=== PATIENT | female | born 1965 | race Caucasian/White ===

== ENCOUNTER 2021-01-31 09:40 | Emergency (ER) | payer BC, SELFPAY ==
[2021-01-31 09:41] VITALS: BP 135/79; PULSE 78; RESP 16; TEMP 36.6; O2SAT 99; BMI 27.4
--- NOTE | 2021-01-31 10:02 | HMH.EDUTC ---
[facility] [place] Clinical Impression: Acute bronchitis Qualifiers: Bronchitis organism: unspecified organism Qualified Code(s): J20.9 - Acute bronchitis, unspecified Sinusitis Qualifiers: Sinusitis location: unspecified location Chronicity: acute Recurrence: non-recurrent Qualified Code(s): J01.90 - Acute sinusitis, unspecified Disposition: Home, Self-Care Condition on Discharge: Good Instructions: DI for Sinusitis, DI for Acute Bronchitis Additional Instructions: Drink plenty of fluids. Take tylenol or ibuprofen for pain or fever. Take the medications as directed. Follow up with your regular doctor. GO TO THE ER FOR ANY WORSENING SYMPTOMS The cough medication (promethazine dm) will make you drowsy, so don't drive or operate heavy machinery after taking it. Prescriptions: Promethazine/Dextromethorphan [Promethazine-Dm Syrup] 5 ml PO Q6HP PRN #240 syrup PRN Reason: Cough Transmission Status: Received by [facility] Amoxicillin/Potassium Clav [Augmentin 875-125 Tablet] 1 tab PO Q12H 10 Days #20 tab Transmission Status: Received by [facility] predniSONE [Prednisone 20mg Tab] 20 mg PO BID 4 Days #8 tab Transmission Status: Received by [facility] Referrals: Aryan Padilla MD [Primary Care Provider] - Forms: Work/School Release Time of Disposition: 10:06 Medical Decision Making - Medical Records Medical records reviewed: No: I reviewed the patient's medical records. - Abraham Inquiry Pt receiving controlled substance: No Vital Signs: 01/31/21 09:41 01/31/21 10:04 Temperature 97.8 F 98.1 F Temperature Source Oral Oral Pulse Rate 74 Pulse Rate [Right] 78 Respiratory Rate 16 14 Blood Pressure 129/75 Blood Pressure [Right Arm] 135/79 Blood Pressure Mean [Right Arm] 97 Blood Pressure Source [Right Arm] Automatic Cuff Blood Pressure Position [Right Arm] Sitting 02 Sat by Pulse Oximetry 99 Oxygen Delivery Method Room Air [facility] [place] HPI - General Stated complaint: congestion, cough Time Seen by Provider: 01/31/21 10:02 Mode of Arrival: Ambulatory Source of Information: Patient Limitations: No Limitations Description of Symptoms (Recalled from Triage Doc. by RN): pt started out with nasal congestion that has moved to chest congestion. she is having a productive cough with yellow sputum. pt states she gets bronchitis about this time every year. pt has had both covid vaccines. HEENT Symptoms (Recalled from RN notes): No Resp Symptoms (Recalled from RN notes): Yes (productive cough with yellow sputum) Skin Symptoms (Recalled from RN notes): No MS Symptoms (Recalled from RN notes): No Functional Status (Recalled from RN notes): na - History of Present Illness Provider Complaint: She states that she has been having sinus congestion and chest congestion for the past 1 week. She usually gets bronchitis this time of year. She denies any fever and chills. She has had both covid-19 vaccinations. - Related Data Previous Rx's Medication Instructions Recorded Amoxicillin/Potassium Clav 1 tab PO Q12H 10 Days #20 tab 01/31/21 [Augmentin 875-125 Tablet] Promethazine/Dextromethorphan 5 ml PO Q6HP PRN #240 syrup 01/31/21 [Promethazine-Dm Syrup] predniSONE [Prednisone 20mg 20 mg PO BID 4 Days #8 tab 01/31/21 Tab] Allergies Allergy/AdvReac Type Severity Reaction Status Date / Time No Known Allergies Allergy Verified 01/31/21 09:52 - Worker's Comp Is this a Worker's Comp case?: No [facility] History - Hepatitis A Screen Drug use history?: No High risk sexual behaviors?: No History of sexually transmitted infection?: No Currently employed?: No Childcare worker?: No Do you have indoor plumbing?: Yes Do you have electricity?: Yes Attestation statement:: This patient has been screened for Hepatitis A risk factors. I have reviewed the patient's past medical history: Yes ROS Obtained: Yes All systems reviewed & no additional complaints
[2021-01-31 10:04] VITALS: BP 129/75; PULSE 74; RESP 14; TEMP 36.7
== END 2021-01-31 10:24 | disposition home or self-care (01) ==
PROVIDERS: Emergency Provider Nurse Practitioner Family; PCP Internal Medicine Adolescent Medicine
DX: J20.9 Acute bronchitis, unspecified (principal); J01.90 Acute sinusitis, unspecified
CPT/HCPCS: 99202; G0463

== ENCOUNTER → 2021-11-04 10:03 | Outpatient (CLI) | payer BC, SELFPAY | PROVIDERS: PCP Radiology Diagnostic Radiology; Visit Provider Nurse Practitioner | DX: Z20.822 Contact with and (suspected) exposure to COVID-19 (principal) | CPT/HCPCS: C9803; U0003; U0005 ==

== ENCOUNTER 2021-12-21 09:12 | Emergency (ER) | payer BC, SELFPAY ==
[2021-12-21 10:05] VITALS: BP 120/87; PULSE 86; RESP 18; TEMP 37.2; O2SAT 98; BMI 27.2
[2021-12-21 10:20] VITALS: BP 120/87; PULSE 86; RESP 18; TEMP 37.2; O2SAT 98
--- NOTE | 2021-12-21 10:43 | HMH.EDUTC ---
[facility] [place] Disposition Clinical Impression: Sinusitis Qualifiers: Sinusitis location: unspecified location Chronicity: unspecified Qualified Code(s): J32.9 - Chronic sinusitis, unspecified Acute bronchitis Qualifiers: Bronchitis organism: unspecified organism Qualified Code(s): J20.9 - Acute bronchitis, unspecified Disposition: Home, Self-Care Condition on Discharge: Good Instructions: Sinusitis, Acute Bronchitis, DI for Sinusitis Additional Instructions: ? Start antibiotic today. Be sure to complete entire prescription even if feeling better ? Monitor temp. Tylenol every 4 hours as needed and / or ibuprofen every 6 hours as needed ( As long as your primary care physician has told you that it ok to take both. For fever/aches/pains ER if no less than 101 despite Tylenol or Motrin ? Humidifier/vaporizer or hot steamy shower ? Inhaler every 4-6 hours as needed like we discussed. If unsure how to use it, ask pharmacist to demonstrate how. Should help open airways and improve cough, wheezing, and shortness of breath ? Mucinex for your cough and chest congestion Be sure to drink lots of water. *Start steroid today. Helps with inflammation therefore, cough and wheezing. Follow directions on the package. Reviewed side effects. Patient reports taking them before. Follow up IMMEDIATELY for new or worsening of symptoms OR no noticeable improvement over the next 48-72 hours. 911 immediately for any life threatening symptoms such as chest pain or difficulty breathing Prescriptions: guaiFENesin [Mucinex 600mg tablet] 600 mg PO Q12HP PRN #20 tab PRN Reason: Congestion Transmission Status: Pending to [facility] methylPREDNISolone [Medrol 4mg tab] 4 mg PO DIRECTED #21 tab Transmission Status: Pending to [facility] Azithromycin [Z-Say 250mg Tab] 250 mg PO DIRECTED #6 tab Transmission Status: Pending to [facility] Referrals: Aryan Padilla MD [Primary Care Provider] - As needed Time of Disposition: 10:51 Medical Decision Making - Abraham Inquiry Pt receiving controlled substance: No Abraham was queried for this patient: No Vital Signs: 12/21/21 10:05 Temperature 99.0 F Temperature Source Oral Pulse Rate [Right Brachial] 86 Respiratory Rate 18 Blood Pressure [Right Arm] 120/87 Blood Pressure Mean [Right Arm] 98 Blood Pressure Source [Right Arm] Automatic Cuff Blood Pressure Position [Right Arm] Sitting 02 Sat by Pulse Oximetry 98 Oxygen Delivery Method Room Air - Lab Data Lab results reviewed: Yes: I reviewed the patient's lab results. [facility] [place] HPI - General Stated complaint: congestion, cough Time Seen by Provider: 12/21/21 10:43 Mode of Arrival: Ambulatory Source of Information: Patient Limitations: No Limitations Description of Symptoms (Recalled from Triage Doc. by RN): PATIENT C/O CHEST CONGESTION X 1 WEEK HEENT Symptoms (Recalled from RN notes): No Resp Symptoms (Recalled from RN notes): Yes Skin Symptoms (Recalled from RN notes): No MS Symptoms (Recalled from RN notes): No Functional Status (Recalled from RN notes): WNL - History of Present Illness Provider Complaint: Patient states that she started with sinus congestion and pressure a few weeks ago but about a week ago she felt like it was trying to move into her chest area States that she has been tested several times for COVID and it has been negative but today she was still having chest congestion so she came in - Related Data Previous Rx's Medication Instructions Recorded Azithromycin [Z-Say 250mg Tab] 250 mg PO DIRECTED #6 tab 12/21/21 guaiFENesin [Mucinex 600mg tablet] 600 mg PO Q12HP PRN #20 tab 12/21/21 methylPREDNISolone [Medrol 4mg 4 mg PO DIRECTED #21 tab 12/21/21 tab] Allergies Allergy/AdvReac Type Severity Reaction Status Date / Time No Known Allergies Allergy Verified 01/31/21 09:52 - Worker's Comp Is this a Worker's Comp case?: No [facility] History - Hepatitis A Screen Drug us
== END 2021-12-21 10:45 | disposition home or self-care (01) ==
PROVIDERS: Emergency Provider Nurse Practitioner; PCP Internal Medicine Adolescent Medicine
DX: J20.9 Acute bronchitis, unspecified (principal); J32.9 Chronic sinusitis, unspecified
CPT/HCPCS: 99202; 99212; 99213; G0463

== ENCOUNTER 2022-03-25 10:17 | Emergency (ER) | payer BC, SELFPAY ==
[2022-03-25 10:32] VITALS: BP 138/75; PULSE 83; RESP 19; TEMP 37.5; O2SAT 96; BMI 27.3
--- NOTE | 2022-03-25 10:35 | HMH.EDUTC ---
[facility] [place] Clinical Impression: Sinusitis Qualifiers: Sinusitis location: unspecified location Chronicity: acute Recurrence: non-recurrent Qualified Code(s): J01.90 - Acute sinusitis, unspecified Acute bronchitis Qualifiers: Bronchitis organism: unspecified organism Qualified Code(s): J20.9 - Acute bronchitis, unspecified Disposition: Home, Self-Care Condition on Discharge: Good Instructions: DI for Sinusitis, DI for Acute Bronchitis Additional Instructions: Drink plenty of fluids. Take tylenol or ibuprofen for pain or fever. Take the medications as directed. Follow up with your regular doctor. GO TO THE ER FOR ANY WORSENING SYMPTOMS Don't start the oral steroids until tomorrow, since you had the shot here today. Prescriptions: Benzonatate [Benzonatate 100mg cap] 100 mg PO TIDP PRN #30 cap PRN Reason: Cough Transmission Status: Received by [facility] methylPREDNISolone [Medrol] 4 mg PO DIRECTED 6 Days #21 packet Transmission Status: Received by [facility] Azithromycin [Z-Say 250mg Tab*] 250 mg PO UD DOSE PK #6 tab Transmission Status: Received by [facility] Referrals: Aryan Padilla MD [Primary Care Provider] - Time of Disposition: 10:46 Medical Decision Making - Medical Records Medical records reviewed: No: I reviewed the patient's medical records. - Abraham Inquiry Pt receiving controlled substance: No Vital Signs: 03/25/22 10:32 03/25/22 11:05 Temperature 99.5 F 99.5 F Temperature Source Oral Pulse Rate 83 Pulse Rate [Left Radial] 83 Respiratory Rate 19 19 Blood Pressure 138/75 Blood Pressure [Right Arm] 138/75 Blood Pressure Mean [Right Arm] 96 02 Sat by Pulse Oximetry 96 - Lab Data Lab results reviewed: Yes: I reviewed the patient's lab results. Orders (Tests/Meds): ED MEDICATIONS Discontinued Medications Generic Name Dose Route Start Last Admin Trade Name Freq PRN Reason Stop Dose Admin Ceftriaxone Sodium 1 gm 03/25/22 10:44 03/25/22 10:58 Ceftriaxone 1gm Vial IM 03/25/22 10:45 1 gm ONCE ONE Administration Lidocaine HCl 0 ml 03/25/22 10:44 03/25/22 10:58 Lidocaine 1% 5ml Pf Vial IM 03/25/22 10:45 2 ml ONCE ONE Administration Methylprednisolone Sodium Succinate 125 mg 03/25/22 10:44 03/25/22 10:59 Methylprednisolone Sod Succ 125mg Vial IM 03/25/22 10:45 125 mg ONCE ONE Administration [facility] [place] - General Stated complaint: congestion, cough, h/a Time Seen by Provider: 03/25/22 10:38 Mode of Arrival: Ambulatory Source of Information: Patient Limitations: No Limitations Description of Symptoms (Recalled from Triage Doc. by RN): pt here with c/o congestion and coughing since wednesday HEENT Symptoms (Recalled from RN notes): Yes Resp Symptoms (Recalled from RN notes): Yes Skin Symptoms (Recalled from RN notes): No MS Symptoms (Recalled from RN notes): No Functional Status (Recalled from RN notes): wnl - History of Present Illness Provider Complaint: She states that for the past 5 days she has had worsening sinus and chest congestion. - Related Data Previous Rx's Medication Instructions Recorded Azithromycin [Z-Say 250mg Tab] 250 mg PO DIRECTED #6 tab 12/21/21 guaiFENesin [Mucinex 600mg tablet] 600 mg PO Q12HP PRN #20 tab 12/21/21 methylPREDNISolone [Medrol 4mg 4 mg PO DIRECTED #21 tab 12/21/21 tab] Azithromycin [Z-Say 250mg Tab*] 250 mg PO UD DOSE PK #6 tab 03/25/22 Benzonatate [Benzonatate 100mg 100 mg PO TIDP PRN #30 cap 03/25/22 cap] methylPREDNISolone [Medrol] 4 mg PO DIRECTED 6 Days #21 03/25/22 packet Allergies Allergy/AdvReac Type Severity Reaction Status Date / Time No Known Allergies Allergy Verified 03/25/22 10:34 - Worker's Comp Is this a Worker's Comp case?: No [facility] History - Hepatitis A Screen Attestation statement:: This patient has been screened for Hepatitis A risk factors. I have reviewed the
[2022-03-25 11:05] VITALS: BP 138/75; PULSE 83; RESP 19; TEMP 37.5
== END 2022-03-25 11:07 | disposition home or self-care (01) ==
PROVIDERS: Emergency Provider Nurse Practitioner Family; PCP Internal Medicine Adolescent Medicine
DX: J01.90 Acute sinusitis, unspecified (principal); J20.9 Acute bronchitis, unspecified
CPT/HCPCS: 96372; 99213; G0463; J0696

== ENCOUNTER → 2022-07-22 08:08 | Outpatient (CLI) | payer BC, OTHER, SELFPAY ==
--- NOTE | 2022-07-22 | CA_ITS ---
APPROVED REPORT Exam: Exercise Treadmill Technologist: Zuly Guy, Ht: 5 ft 4 in Wt: 168 lbs BSA: 1.82 m2 HR: 66 bpm BP: 139/78 mmHg Rhythm: NSR, BORDERLINE RIGHT ATRIAL ENLARGEMENT, NS T WAVE ABN LEAD III Medical History Medical History: Smoking Medications: Vit C,,,,, Acidophilus,,,,, Lactobacillus,,,,, Levonorgestrel-Ethinyl,,,,, Allergies: No known drug allergies Cardiac Risk Factors: FHX of CAD, Smoking Stress Test Details Test: Emmanuel HR Resting HR: 83 bpm Max Heart Rate (APMHR): 164.696206 bpm Max HR Achieved: 173 bpm Target HR (85% APMHR): 139.870550 bpm % of APMHR: 105.49 Recovery HR: 104 bpm BP Resting BP: 139/78 mmHg Max BP: 194/85 mmHg Recovery BP: 124.0/76.0 mmHg ECG Resting ECG: NSR, BORDERLINE RIGHT ATRIAL ENLARGEMENT, NS T WAVE ABN LEAD III Clinical Exercise duration: 10:24 min Highest Stage Achieved: Exercise capacity: 12.8 METs Stress ECG Conclusion PT EXCERCISED 10:24 INTO STAGE 4 OF EMMANUEL PROTOCOL MAX HR: 173 % OF PM: 105% MAX B/P: 194/85 METS: 12.8 TEST STOPPED DUE TO: SOA NO CP. 0.5-1MM HORIZONTAL ST DEPRESSION INFERIORLY DURING EXCERCISE. IN LATE RECOVERY THERE IS 0.5MM HORIZONTAL ST DEPRESSION INFERIORLY AND IN V6 WITH T WAVE INVERSIONS. EQUIVOCAL EKG CHANGES WITHOUT CP. GOOD EXERCISE TOLERANCE. GXT ONLY (NO IMAGING) Test Summary REST . . . . . . . Standing REST . . . . . . . Sitting REST 03:12 0.0 0.0 83 . 139/ 78 . . Stage 1 01:00 10.0 1.7 100 . . . . Stage 1 02:00 10.0 1.7 112 . . . . Stage 1 03:00 10.0 1.7 112 . 164/ 85 . . Stage 2 01:00 12.0 2.5 129 . . . . Stage 2 02:00 12.0 2.5 130 . . . . Stage 2 03:00 12.0 2.5 136 . 185/ 84 . . Stage 3 01:00 14.0 3.4 149 . . . . Stage 3 02:00 14.0 3.4 158 . . . . Stage 3 03:00 14.0 3.4 162 . 194/ 85 . . Stage 4 01:00 16.0 4.2 170 . . . . Stage 4 01:24 16.0 4.2 172 . . . Stop exercise at 10:24 RECOVERY 01:00 0.0 0.0 152 . . . . RECOVERY 02:00 0.0 0.0 131 . 154/ 82 . . RECOVERY 03:00 0.0 0.0 115 . 154/ 82 . . RECOVERY 04:00 0.0 0.0 107 . 135/ 71 . . RECOVERY 05:00 0.0 0.0 104 . 135/ 71 . . RECOVERY 06:00 0.0 0.0 115 . 124/ 76 . . RECOVERY 07:00 0.0 0.0 101 . 124/ 76 . . RECOVERY 07:25 0.0 0.0 107 . 124/ 76 . . Electronically signed by : Aryan Padilla MD 07/22/2022 17:42:17
--- NOTE | 2022-07-22 08:23 | US_ITS ---
FINAL REPORT CLINICAL HISTORY: r/o gallstones; r/o AAA FINDINGS: Sonographic images of the abdomen were obtained. The liver has an unremarkable appearance with normal echogenicity. The gallbladder has an unremarkable appearance without evidence of gallstones. There is no evidence of biliary ductal dilatation. The common hepatic duct measures 3 mm, which is within normal limits. Limited images of the pancreas are unremarkable. The spleen size is normal. The right kidney measures 10.6 cm in length. The left kidney measures 10.2 cm in length. There is normal renal echogenicity. There is no evidence of hydronephrosis. The aorta has an unremarkable appearance. Limited images of the inferior vena cava are unremarkable. IMPRESSION: Unremarkable abdominal ultrasound with no acute abnormality identified. Reviewed, Interpreted and Dictated by Oskar Olivia MD Transcribed by Sammie Meza Authenticated and [facility]
== END ==
PROVIDERS: PCP Family Medicine; Visit Provider Family Medicine
DX: R07.89 Other chest pain (principal)
CPT/HCPCS: 76700; 93017

== ENCOUNTER → 2022-08-05 08:22 | Outpatient (CLI) | payer BC, SELFPAY ==
[2022-08-05 09:27] LABS: Basophils # 0.1 K/mm3 (0-0.2); Basophils % 1.8 % (0.1-2.0); Eosinophils # 0.2 K/mm3 (0.0-0.4); Eosinophils % 2.1 % (0.1-12.0); Hematocrit 44.6 % (37.0-47.0); Hemoglobin 14.4 g/dL (12.2-16.2); Lymphocytes # 2.3 K/mm3 (0.7-4.5); Lymphocytes % 29.3 % (10-50); Mean Corpuscular HGB Conc 32.3 g/dL (31.8-35.4); Mean Corpuscular Hemoglobin 30.3 pg (27.0-31.2); Mean Corpuscular Volume 94.1 fl (81-99); Mean Platelet Volume 9.1 fl (7.4-10.4); Monocytes # 0.5 K/mm3 (0.1-1.0); Monocytes % 6.5 % (1.7-9.3); Neutrophils # 4.6 K/mm3 (1.8-7.8); Neutrophils % 60.3 % (37.0-80.0); Platelet Count 300 K/mm3 (142-424); Red Blood Count 4.74 M/mm3 (4.20-5.40); Red Cell Distribution Width 12.8 % (11.5-17.5); White Blood Count 7.7 K/mm3 (4.8-10.8)
[2022-08-05 10:32] LABS: Chloride 103 mmol/L (98-107)
[2022-08-05 10:33] LABS: Potassium 4.4 mmoL/L (3.5-5.1); Sodium 141 mmol/L (136-145)
[2022-08-05 10:35] LABS: Blood Urea Nitrogen 13 mg/dl (7-17); Estimated Glomerular Filt Rate 87 ml/min (>60); GFR (African American) 105 ML/MIN (>60)
[2022-08-05 10:36] LABS: Anion Gap 14.4 mEq/L (5-15); Calcium 9.6 mg/dl (8.4-10.2); Carbon Dioxide 28 mmol/L (22.0-30.0); Glucose 84 mg/dl (74-100)
== END ==
PROVIDERS: PCP Family Medicine; Visit Provider Nurse Practitioner Family
DX: Z01.812 Encounter for preprocedural laboratory examination (principal); Z20.822 Contact with and (suspected) exposure to COVID-19; R07.89 Other chest pain; R94.39 Abnormal result of other cardiovascular function study; I10 Essential (primary) hypertension; I63.9 Cerebral infarction, unspecified; F17.200 Nicotine dependence, unspecified, uncomplicated; Z87.19 Personal history of other diseases of the digestive system
CPT/HCPCS: 36415; 80048; 85025; C9803; U0003; U0005

== ENCOUNTER 2022-08-07 07:32 | Day surgery (SDC) | payer BC, OTHER, SELFPAY ==
[2022-08-07] VITALS (13 sets, daily range): BP systolic 95–127; BP diastolic 53–77; PULSE 45–66; RESP 16–18; O2SAT 94–100; BMI 28.8
--- NOTE | 2022-08-07 07:06 | IR_ITS ---
APPROVED REPORT Patient Location: Outpatient PROCEDURES Left heart catheterization Left ventriculogram Selective coronary angiogram Drug-eluting stent deployment to the proximal ramus intermedius INDICATION Coronary artery disease, Abnormal stress test, Worsening angina pectoris Informed consent was obtained prior to the procedure. COMPLICATIONS none Estimated Blood Loss: less than 10 ml TECHNIQUE One percent lidocaine used to anesthetize the right anterior aspect of the wrist. The right radial artery was accessed via the Seldinger technique. A 6 Romanian sheath was placed in the right radial artery. 2.5 mg of verapamil, 800 mcg of nitroglycerin, 1mg Lidocaine and 5000 U Heparin were given through the arterial sheath. The papa catheter was also used to perform left heart catheterization, left ventriculogram and selective coronary angiogram. At the end the diagnostic angiogram therapeutic heparin was administered giving a therapeutic ACT and the guide catheter was placed in the left main artery followed by a Choice PT extra-support wire being placed distally in the ramus intermedius. A 3 mm x 18 mm resolute Adolfo stent was placed in the proximal ramus intermedius and deployed at 16 jo ann reducing the severe stenosis to 0%. IDANIA-3 flow was present before and after the procedure. At the end of the procedure the apparatus was removed the sheath was removed and hemostasis was achieved using TR banding patient was transferred to the postop putting in stable condition ANGIOGRAPHIC RESULTS The left main artery Normal The left anterior descending artery Is proximally normal and has mid vessel concentric 30% stenosis. A large ramus intermedius originates off the proximal LAD and has a proximal concentric 70% stenosis The circumflex artery Nondominant and normal The right coronary artery Dominant with mild 10% luminal irregularity The DE LEON ventriculogram reveals Normal 65% The left ventricular end-diastolic pressure 20 mmHg IMPRESSION Severe single-vessel disease involving a large proximal ramus intermedius with successful stenting reducing the stenosis to 0% Normal ejection fraction Mildly elevated LVEDP PLAN 1. Dual antiplatelet therapy 2. LDL less than 55 to be achieved with high intensity statin 3. Cardiac rehabilitation 4. Avoidance of tobacco 5. Risk factor modification Electronically signed by : Juan Orosco MD 08/07/2022 10:20:30
[2022-08-07 10:54] LABS: CATHL Activated Clotting Time > 400 SEC (74-125)
--- NOTE | 2022-08-07 13:15 | P.CONPHA_ITS ---
PHA Clerical Proofreader Discharge Med Manager Telemarketing: Katarzyna Carlson has received discharge medication counseling on the following medications: -ASPIRIN (ON PREVIOSULY, NO QUESTIONS) -BRILINTA (BLOOD THINNER, TWICE DAILY, BLEED/BRUISE RISK, BLEED LOCATION/APPEARANCE, BUMP HEAD = GO TO ER) -ATORVASTATIN (CHOLESTEROL, TAKE HS, WATCH FOR MUSCLE PAIN/WEAKNESS) -BISOPROLOL (ON PREVIOSULY, NO QUESTIONS) -RAMIPRIL (FOR BP, ONCE DAILY, DIZZINESS, LIGHTHEADEDNESS, HEADACHE POSSIBLE, COUGH POSSIBLE)
== END 2022-08-07 14:10 | disposition home or self-care (01) ==
PROVIDERS: PCP Family Medicine; Visit Provider Internal Medicine
DX: I25.118 Atherosclerotic heart disease of native coronary artery with other forms of angina pectoris (principal); F17.210 Nicotine dependence, cigarettes, uncomplicated; R07.89 Other chest pain; Z79.899 Other long term (current) drug therapy
CPT/HCPCS: 85347; 92928; 93458; 99152; C1725; C1769; C1876; C9600; J1644; Q9967

== ENCOUNTER 2022-08-20 12:55 | Outpatient (RCR) | payer BC, SELFPAY | END 2022-08-20 13:26 | disposition home or self-care (01) | LOC: PT 12:55 | PROVIDERS: Visit Provider Internal Medicine | DX: I25.10 Atherosclerotic heart disease of native coronary artery without angina pectoris (principal); Z95.5 Presence of coronary angioplasty implant and graft ==

== ENCOUNTER → 2023-01-06 18:43 | Outpatient (CLI) | payer BC, SELFPAY | PROVIDERS: PCP Family Medicine; Visit Provider Family Medicine | DX: E78.5 Hyperlipidemia, unspecified (principal) | CPT/HCPCS: 80053; 80061; 85025 ==

== ENCOUNTER → 2023-06-18 13:11 | Outpatient (CLI) | payer BC, SELFPAY ==
--- NOTE | 2023-06-18 13:16 | XR_ITS ---
FINAL REPORT CLINICAL HISTORY: right elbow pain COMPARISON: None FINDINGS: 2 views of the right elbow were obtained. There is no acute fracture or dislocation. The joint spaces are intact. The soft tissues are unremarkable. IMPRESSION: No acute fracture. Reviewed, Interpreted and Dictated by Chidi Juarez III, MD Transcribed by Leydi Cruz Authenticated and [facility]
== END ==
PROVIDERS: PCP Family Medicine; Visit Provider Family Medicine
DX: M25.521 Pain in right elbow (principal)
CPT/HCPCS: 73070

== ENCOUNTER → 2023-09-22 13:37 | Outpatient (CLI) | payer BC, SELFPAY ==
[2023-09-22 15:07] LABS: Cholesterol 140 mg/dl (140-200); Triglycerides 50 mg/dl (30-150); VLDL Cholesterol 10 mg/dL (0-40)
[2023-09-22 15:08] LABS: Chol/HDL Ratio 1.9 (1-3.5); HDL Cholesterol 73 mg/dl (40-60)
[2023-09-22 15:22] LABS: Direct LDL Cholesterol 56.64 mg/dL (100-129)
[2023-09-22 15:25] LABS: Free T4 (Free Thyroxine) 1.06 ng/dl (0.78-2.19)
[2023-09-22 15:39] LABS: Thyroid Stimulating Hormone 1.35 uIU/mL (0.465-4.68)
== END ==
PROVIDERS: PCP Family Medicine; Visit Provider Nurse Practitioner
DX: E78.5 Hyperlipidemia, unspecified (principal); I25.10 Atherosclerotic heart disease of native coronary artery without angina pectoris; Z87.19 Personal history of other diseases of the digestive system; Z95.5 Presence of coronary angioplasty implant and graft; F17.200 Nicotine dependence, unspecified, uncomplicated
CPT/HCPCS: 36415; 80061; 84439; 84443

== ENCOUNTER 2024-09-20 11:01 | Outpatient (CLI) | payer BC, SELFPAY ==
--- OUTSIDE RECORDS SUMMARY | 2024-09-20 11:03 | XMS_ITS | Encounter Summary ---
Author Organization [facility] Address [address] [place] [id number] Care Team Providers Care Assembler Final Name Role Phone Ashley Carrera APRN Primary Care Provider [phone] Reason for Visit * Reason Onset Date Comments Med Refill 02/23/2022 Encounter Details Date Type Department Care Team (Late st Contact Info) Description 02/23/2022 Refill [facility] [address] [facility] [address] [place] [address] Carole Onofre MA Social History Tobacco Use Types Packs/Day Years Used Date Smoking Tobacco: Former Cigarettes Smokeless Tobacco: Never Alcohol Use Standard Drinks/Week Comments No 0 (1 standard drink = 0.6 oz pur e alcohol) AUDIT-C Answer Date Recorded Frequency of Alcohol Consumption Never 11/29/2018 Average Number of Drinks Not on file 019 Frequency of Binge Drinking Not on file 11/02 Comments Unknown Sex and Gender Information Value Date Recorded Sex Assigned at Not on file Legal Sex Female 10:48 AM EDT Gender Identity Not on file Sexual Orientation Not on file documented as of this encounter Plan of Treatment Not on file documented as of this encounter Visit Diagnoses Not on filedocumented in this encounter Care Teams Assembler Final Relationship Specialty Start Date End Date Ashley Carrera APRN [address] [facility] [place] [id number] PCP - General Family Medicine 11/14/18 documented as of this encounter
--- OUTSIDE RECORDS SUMMARY | 2024-09-20 11:03 | XMS_ITS | Encounter Summary ---
Author Organization [facility] Address [address] [place] [id number] Care Team Providers Care Author Name Role Phone Ashley Carrera ROSA Primary Care Provider [phone] Encounter Details Date Type Department Care Team (Late st Contact Info) Description 12/20/2018 8:30 AM EST Outside Facility Service [facility] [address] [facility] [address] [place] [address] Jean Elizabeth MD [address] [facility] [address] [place] [address] Social History Tobacco Use Types Packs/Day Years Used Date Smoking Tobacco: Never Smokeless Tobacco: Never Alcohol Use Standard Drinks/Week [...] on file documented as of this encounter Procedures Procedure Name Priority Date/Time Associated Diagnosis Comments SCANNED - COLONOSCOPY 12/20/2018 documented in this encounter Results * SCANNED - COLONOSCOPY (12/20/2018) Jean Elizabeth MD CHART REVIEW TABS Diana l Result documented in this encounter Visit Diagnoses Not on filedocumented in this encounter Care Teams Author Relationship Specialty Start Date End Date Ashley Carrera ROSA [address] [facility] [place] [address] PCP - General Family Medicine 11/14/18 documented as of this encounter
--- OUTSIDE RECORDS SUMMARY | 2024-09-20 11:03 | XMS_ITS | Encounter Summary ---
Author Organization [facility] yste Address [address] [place] [address] Care Team Providers Care Floor Representative Name Role Phone Unavailable Primary Care Provider Unavailabl e Encounter Details Date Type Department Care Team (Late st Contact Info) Description 09/20/2008 Historical Mammograp hy Encounter [facility]V [address] [place] [address] Interface, See Report Social History Tobacco Use Types Packs/Day Years Used Date Smoking Tobacco: Never Assessed Comments Unknown Sex and Gender Information Value Date Recorded Sex Assigned at Not on file Legal Sex Female 10:48 AM EDT Gender Identity Not on file Sexual Orientation Not on file documented as of this encounter Plan of Treatment Not on file documented as of this encounter Procedures Procedure Name Priority Date/Time Associated Diagnosis Comments MAMMO HISTORICAL RESULT Routine 09/20/2008 8:58 AM EST documented in this encounter Results * MAMMO HISTORICAL RESULT (09/20/2008 8:58 AM EST) Anatomical Region Laterality Modality Breast Mammography 09/20/2008 8:58 AM EST Narrative 09/20/2008 3:39 PM EST ?[facility] ? [address] ??[place], [place] [address] ? NAME: JAVIERFRANCESCA ? : ??65 ??MR#: [id number] ? LOC: ?? CO ? AGE: 42Y ?? Pt type: CO ?Exam Date: 09/20/08 0900 ? SEX: F ?? AN#:[id number] ?Ck-in#: [id number] ? JITENDRA,BRANDON ? [address] ? [address] ? [place] ?[place] ?[address] ? Chk-in # ?? Order ?Exam ?[id number] ?? 0001 ? [id number] ??BC MAMM SCREEN BILAT DIG PNL ? Ord Diag: SCREENING ? HISTORY: ??A 42-year-old female for screening mammography. ??The patient's grandmother had breast cancer in her 60s. ??The patient does not report any breast complaints. ?? DIGITAL BILATERAL SCREENING MAMMOGRAM: ?? COMPARISON USED: ??10/05/06. ?? TECHNIQUE: ??CC and MLO digital views of both breasts as well as exaggerated lateral CC digital views were performed. ??(Total of 6 films.) ?? FINDINGS: The breasts are moderately dense and mildly heterogeneous. There are no suspicious calcifications in either breast. ??There are a few subtle asymmetries between the breasts, but no dominant masses or new areas of density are appreciated. ?? IMPRESSION: ??Bi-Rads Category II, benign. ?? The breast parenchymal pattern is stable from the previous exams. ??There are no new areas of density or masses, nor developing changes suspicious for malignancy. ?? RECOMMENDATION: ??Yearly mammography, yearly physical exam and monthly self-breast exam. ?? The standard false-negative rate of mammography is between 10 and 25%. Complex patterns or increased breast density will markedly elevate the false-negative rate of mammography. ? FINAL ?CONTINUED ?Page ??1 ? RADIOLOGY REPORT ?[facility] ? [address] ??[place], [place] [address] ? NAME: FRANCESCA CARLSON ? : ??65 ??MR#: [id number] ? LOC: ?? CO ? AGE: 42Y ?? Pt type: CO ?Exam Date: 09/20/08 0900 ? SEX: F ?? AN#:[id number] ?Ck-in#: [id number] ? BRANDON HAM ? [address] ? [address] ? [place] ?[place] ?[address] ? Checkin-Exam Code Summary ? [id number] ?? ICAD was utilized. ?? A letter, in lay terminology, with the results of this exam will be mailed to the patient. ?/READ BY/ YUKO CARLISLE ?/Released By/ YUKO ACRLISLE ?Released By Date/Time: ??11/20/08 1526 ?Fabrication Specialist: ??MM ? FINAL ? Page ??2 ? RADIOLOGY REPORT us See Report Interface IMG MAMMOGRAPHY ORDERABLES Final Result documented in this encounter Visit Diagnoses Not on filedocumented in this encounter
--- OUTSIDE RECORDS SUMMARY | 2024-09-20 11:03 | XMS_ITS | Encounter Summary ---
Author Organization [facility] Address [address] [place] [id number] Care Team Providers Care Oyster Cultivator Name Role Phone Ashley Carrera APRN Primary Care Provider [phone] Reason for Visit * Reason Comments Liver Follow-up follow up LFT's Encounter Details Date Type Department Care Team (Late st Contact Info) Description 05/29/2019 2:30 PM EDT Office Visit [facility] [address] [facility] [address] [place] [phone] Jean Elizabeth MD [address] [facility] [address] [place] [address] Elevated liver function tests (Primary Dx); Adenomatous polyp of colon, unspecified part of colon Social History Tobacco Use Types Packs/Day Years [...] on file documented as of this encounter Last Filed Vital Signs Vital Sign Reading Time Taken Comments Blood Pressure 126/67 05/29/2019 2:20 PM EDT Pulse 67 05/29/2019 2:20 PM EDT Temperature - - Respiratory Rate - - Oxygen Saturation - - Inhaled Oxygen Concentration - - Weight 77.6 kg (171 lb) 05/29/2019 2:20 PM EDT Height - - Body Mass Index - - documented in this encounter Progress Notes * Jaen Elizabeth MD - 05/29/2019 2:30 PM EDT PCP: Ashley Carrera APRN No referring provider defined for this encounter. Chief Complaint Patient presents with ??? Liver Follow-up follow up LFT's HPI The patient is a 53-year-old known to me. She has been found to have incidental elevations in her liver chemistries. She did not get her blood work on her last visit. I do not have the serology results as result. She has had hepatitis C test which was negative. She had a right upper quadrant ultrasound which was normal. She has no history of heavy alcohol use. She has no history of IV drug use orhomemade tattoos. She has been trying to lose weight but has not been too successful at the moment.He is going to re-group and try harder. No Known Allergies No current outpatient medications on file. History reviewed. No pertinent past medical history. Past Surgical History: Procedure Laterality Date ? ? D&C AND LAPAROSCOPY ??? DENTAL PROCEDURE ??? TUBAL ABDOMINAL LIGATION Social History Socioeconomic History ??? Marital status: Spouse name: Not on file ??? Number of children: Not on file ??? Years of education: Not on file ??? Highest education level: Not on file Tobacco Use ??? Smoking status: Never Smoker ??? Smokeless tobacco: Never Used Substance and Sexual Activity ??? Alcohol use: No Frequency: Never ??? Drug use: No Family History Problem Relation Age of Onset ??? Colon polyps Father ??? Colon polyps Brother ??? Colon cancer Paternal Grandfather Review of Systems Constitutional: Negative for unexpected weight loss. HENT: Negative for trouble swallowing. Eyes: Negative. Respiratory: Negative. Gastrointestinal: Negative for abdominal distention, abdominal pain, anal bleeding, blood in stool,constipation, diarrhea, nausea, rectal pain, vomiting, GERD and indigestion. Endocrine: Negative. Genitourinary: Negative. Musculoskeletal: Negative. Skin: Negative. Allergic/Immunologic: Negative. Neurological: Negative. Hematological: Negative. Psychiatric/Behavioral: Negative. Vitals: 05/29/19 1420 BP: 126/67 Pulse: 67 Physical Exam General Appearance: Alert, in no acute distress Head: Normocephalic, without obvious abnormality, atraumatic Eyes: Lids and lashes normal, conjunctivae and sclerae normal, no icterus, no pallor, corneas clear, PERRLA Extremities: Moves all extremities well, no edema, no cyanosis, no redness Skin: No bleeding, bruising or rash Neurologic: Cranial nerves 2 - 12 grossly intact, no focal deficits Review of systems was reviewed Katarzyna was seen today for liver follow-up. Diagnoses and all orders for this visit: Elevated liver function tests - Hepatic Function Panel - RODAS Fibrosure Adenomatous polyp of colon, unspecified part of colon Impressions and plan #1 history of adenomatous polyps: She is not due until 2021 for reevaluation. #2 history of elevated liver chemistries: Most likely we are dealing with nonalcoholic fatty liver disease. I will check a Rodas FibroSure. I would like to recheck her liver chemistries. We talked about modest weight reduction as well. I am going to get her other serologies. Hopefully she will get those tests done today. I will see her back in follow-up in 5 to 6 months. Jean Elizabeth MD documented in this encounter Plan of Treatment Not on file documented as of this encounter Procedures Procedure Name Priority Date/Time Associated Diagnosis Comments RODAS FIBROSURE PLUS Routine 05/29/2019 2 :48 PM EDT Elevated liver function tests HEPATIC FUNCTION PANEL Routine 05/29/2019 2:48 PM EDT Elevated liver function tests documented in this encounter Results * (ABNORMAL) RODAS Fibrosure (05/29/2019 2:48 PM EDT) Fibrosis Score (References) 0.24(H) 0.00 - 0.21 06/02/2019 6:08 AM EDT [facility] Fibrosis Stage (Reference) F0-F1 06/02/2019 6:08 AM EDT [facility] Steatosis Score (Reference) 0.53(H) 0.00 - 0.30 06/02/2019 6:08 AM EDT [facility] Steatosis Grade (Reference) Comment 06/02/2019 6:08 AM EDT [facility] Comment:S1 - S2 Minimal Stea tosis - Moderate Steatosis RODAS Score (Reference) 0.25 0.25 06/02/2019 6:08 AM EDT [facility] Rodas Grade (Reference) Comment 06/02/2019 6:08 AM EDT [facility] Comment:N0 - Not RODAS Height: (Reference) 64 in 06/02 6:08 AM EDT [facility] Weight: (Reference) 171 LBS 06/02 6:08 AM EDT [facility] Alpha 2-Macroglobulins, Qn 235 110 - 276 mg/dL 06/02/2019 6:08 AM EDT [facility] Haptoglobin 112 34 - 200 mg/dL 06/02/2019 6:08 AM EDT [facility] Apolipoprotein A-1 141 116 - 209 mg/dL 06/02/2019 6:08 AM EDT [facility] Total Bilirubin 0.3 0.0 - 1.2 mg/dL 06/02/2019 6:08 AM EDT [facility] GGT 49 0 - 60 IU/L 06/02/2019 6:08 AM EDT [facility] ALT (SGPT) 43(H) 0 - 40 IU/L 06/02/2019 6:08 AM EDT [facility] AST (SGOT) P5P (Reference) 20 0 - 40 IU/L 06/02/2019 6:08 AM EDT [facility] Cholesterol, Total (Reference) 167 100 - 199 mg/dL 06/02/2019 6:08 AM EDT [facility] Glucose, Serum (Reference) 94 65 - 99 mg/dL 06/02/2019 6:08 AM EDT [facility] Triglycerides 59 0 - 149 mg/dL 06/02/2019 6:08 AM EDT [facility] Interpretations: (Reference) Comment 06/02/2019 6:08 AM EDT [facility] Comment: Quantitative results of 10 biochemicals in combination with age, gender, height, and weight, are analyzed using a computational algorithm to provide a quantitative surrogate marker (0.0-1.0) of liver fibrosis (Metavir F0-F4), hepatic steatosis (0.0-1.0, S0-S3), and Non-Alcoholic Steato- Hepatitis (RODAS) (0.0-0.75, N0-N2). The absence of steatosis (S<0.38) precludes the diagnosis of RODAS. Fibrosis marker: ??In a study of 171 Non-Alcoholic Fatty Liver Disease (NAFLD) patients where 23% had significant NAFLD fibrosis (Metavir F2-F4) and 11% had cirrhosis by liver biopsy, a fibrosis result of >0.3 yielded a sensitivity of 83% and a specificity of 78% for the detection of significant fibrosis(1). Steatosis Marker: ??In a population of 744 patients (583 HCV, 18 HBV, 69 NAFLD, and 74 alcoholic disease patients), where 36% had significant steatosis (>5%) on a liver biopsy, a steatosis score >0.5 had a sensitivity of 71% and a specificity of 72% for identification of significant steatosis(2). RODAS marker: ??In a population of 257 NAFLD patients, where 62% had at least some RODAS by liver biopsy, a prediction of RODAS had a sensitivity of 88% for identifying RODAS and a specificity of 50%(3). Fibrosis Scoring: Comment 019 6:08 AM EDT [facility] Comment: ?<0.21 = Stage F0 - No fibrosis 0.21 - 0.27 = Stage F0 - F1 0.27 - 0.31 = Stage F1 - Portal fibrosis 0.31 - 0.48 = Stage F1 - F2 0.48 - 0.58 = Stage F2 - Bridging fibrosis with few septa 0.58 - 0.72 = Stage F3 - Bridging fibrosis with many septa 0.72 - 0.74 = Stage F3 - F4 ?>0.74 = Stage F4 - Cirrhosis Steatosis Grading (Reference) Comment 06/02/2019 6:08 AM EDT [facility] Comment: ?< 0.30 = S0 - No Steatosis 0.30 to 0.38 = S0 - S1 0.38 to 0.48 = S1 - Minimal Steatosis 0.48 to 0.57 = S1 - S2 0.57 to 0.67 = S2 - Moderate Steatosis 0.67 to 0.69 = S2 - S3 ?> 0.69 = S3 - Marked or Severe Steatosis Rodas Scoring (Reference) Comment 06/02/2019 6:08 AM EDT [facility] Comment: 0.25 = N0 - Not RODAS 0.50 = N1 - Borderline or probable RODAS 0.75 = N2 - RODAS Limitations: (Reference) Comment 06/02/2019 6:08 AM EDT [facility] Comment: RODAS FibroSure is recommended for patients with suspected non- alcoholic fatty liver disease. ??It is not recommended for patients with other liver diseases. ??It is also not recommended in patients with Gilbert Disease, acute hemolysis, acute viral hepatitis, drug induced hepatitis, genetic liver disease, autoimmune hepatitis and/or extra-hepatic cholestasis. ??Any of these clinical situations may lead to inaccurate quantitative predictions of fibrosis. Comment (Reference) Comment 06/02 6:08 AM EDT [facility] Comment: This test was developed and its performance characteristics determined by [employer]. ??It has not been cleared or approved by the Food and Drug Administration. ??The FDA has determined that such clearance or approval is not necessary. For questions regarding this report please contact customer service at . References: 1. Liam Azevedo et al. Diagnostic Value of Biochemical Markers ?? (FibroTest) for the prediction of Liver Fibrosis in ?? patients with Non-Alcoholic Fatty Liver Disease. BMC ?? Gastroenterology 2006; 6:6. 2. Esther Muro. et al. The Diagnostic Value of Biomarkers ?? (Steato Test) for the Prediction of Liver Steatosis. ?? Comparative Hepatol. 2005; 4:10. 3. Esther Muro, Dianelys Wheeler, et al. Diagnostic value ?? of biochemical markers (RODAS TEST) for the prediction of ?? non alcohol steato hepatitis in patients with non- ?? alcoholic fatty liver disease. BMC Gastroenterology 2006; ?? 6:34 doi:10.1186/6619-006N-8-34. Blood Venipuncture / Unknown 05/29/2019 2:48 PM EDT 05/29/2019 2:48 PM EDT Narrative [facility] - 06/02/2019 6:08 AM EDT Performed at: ??[address] - [address] ??[id number] Linotype Machinist: Maria M Carvajal MD, Phone: ??[phone] Jean Elizabeth MD LAB BLOOD ORDERABLES Diana l Result [facility] [address] [place] [address], * (ABNORMAL) Hepatic Function Panel (05/29/2019 2:48 PM EDT) Total Protein 6.5 6.0 - 8.5 g/dL 05/29/2019 10:50 PM EDT [facility] Albumin 4.00 3.50 - 5.20 g/dL 05/29/2019 10:50 PM EDT [facility] ALT (SGPT) 39(H) 1 - 33 U/L 05/29/2019 10:50 PM EDT [facility] AST (SGOT) 20 1 - 32 U/L 05/29/2019 10:50 PM EDT [facility] Alkaline Phosphatase 71 39 - 117 U/L 05/29/2019 10:50 PM EDT [facility] Total Bilirubin 0.4 0.2 - 1.2 mg/dL 05/29/2019 10:50 PM EDT [facility] Bilirubin, Direct <0.2(L) 0.2 - 0.3 mg/dL 05/29/2019 10:50 PM EDT [facility] Bilirubin, Indirect mg/dL 05/29/2019 10:50 PM EDT [facility] Comment:Unable to calculate Blood Venipuncture / Unknown 05/29/2019 2:48 PM EDT 05/29/2019 2:48 PM EDT Jean Elizabeth MD LAB BLOOD ORDERABLES Diana l Result [facility]
[address] [place] [address], [place] [phone] documented in this encounter Visit Diagnoses Diagnosis Elevated liver function tests- Primary Other abnormal blood chemistry Adenomatous polyp of colon, unspecified part of colon documented in this encounter Care Teams Oyster Cultivator Relationship Specialty Start Date End Date Ashley Carrera APRN [address] [facility] [address] [address] [place], [place] [address] PCP - General Family Medicine 11/14/18 documented as of this encounter
--- OUTSIDE RECORDS SUMMARY | 2024-09-20 11:03 | XMS_ITS | Encounter Summary ---
Author Organization [facility] Address [address] [place] [id number] Care Team Providers Care Stave Bolt Equalizer Name Role Phone Ashley Carrera ROSA Primary Care Provider [phone] Encounter Details Date Type Department Care Team (Late st Contact Info) Description 03/04/2022 12:30 PM EDT Outside Facility Service [facility] [address] [facility] [address] [place] [phone] Jean Elizabeth MD [address] [facility] [address] [place] [address] Social History Tobacco Use Types Packs/Day Years [...] Date/Time Associated Diagnosis Comments SCANNED - COLONOSCOPY 03/05/2022 documented in this encounter Results * SCANNED - COLONOSCOPY (03/05/2022) us Jean Elizabeth MD CHART REVIEW TABS Diana l Result documented in this encounter Visit Diagnoses Not on filedocumented in this encounter Care Teams Stave Bolt Equalizer Relationship Specialty Start Date End Date Ashley Carrera APRN [address] [facility] [place] [address] PCP - General Family Medicine 11/14/18 documented as of this encounter
--- OUTSIDE RECORDS SUMMARY | 2024-09-20 11:03 | XMS_ITS | Encounter Summary ---
Author Organization [facility] Address [address] [place] [id number] Care Team Providers Care Security System Engineer Name Role Phone Ashley Carrera APRN Primary Care Provider [phone] Reason for Visit * Reason Comments Elevated Hepatic Enzymes Encounter Details Date Type Department Care Team (Late st Contact Info) Description 02/14/2020 12:00 PM EDT Telemedicine [facility] [address] [facility] [address] [place] [phone] Jean Elizabeth MD [address] [facility] [address] [place] [address] Elevated liver function tests (Primary Dx); NAFLD (nonalcoholic fatty liver disease); Adenomatous polyp of colon, unspecified part of [...] on file documented as of this encounter Progress Notes * Jean Elizabeth MD - 02/14/2020 12:00 PM EDT PCP: Ashley Carrera APRN You have chosen to receive care through a telehealth visit. Do you consent to use a video/audio connection for your medical care today? Yes No referring provider defined for this encounter. Chief Complaint Patient presents with ??? Elevated Hepatic Enzymes HPI Patient is known to me with a history of nonalcoholic fatty liver disease. Her recent liver chemistries in October showed an ALT that was minimally elevated at 39. Her AST was normal at 24. Her alkaline phosphatase and bilirubin were normal as well. She had a RODAS Fibrosure which showed a fibrosisscore of 0.2 for which represents F0 to F1 disease. Her steatosis score was 0.53 which is moderate steatosis. Her Rodas score was normal. She has lost an additional 4 pounds. She is down to 155. She was 171 last summer in May. She was 159 in October. She has no new complaints. Her last colonoscopywas 12/20/2018. She had colon polyps and a 3-year follow-up was suggested. No Known Allergies No current outpatient medications on file. Past Medical History: Diagnosis Date ??? Adenomatous polyp of colon ??? Colon polyp ??? Fatty liver ??? NAFLD (nonalcoholic fatty liver disease) 02/14/2020 Past Surgical History: Procedure Laterality Date ??? COLONOSCOPY ? ? D&C AND LAPAROSCOPY ??? DENTAL PROCEDURE ??? TUBAL ABDOMINAL LIGATION Social History Socioeconomic History ??? Marital status: Spouse name: Not on file ??? Number of children: Not on file ??? Years of education: Not on file ??? Highest education level: Not on file Tobacco Use ??? Smoking status: Former Smoker Packs/day: 0.00 Years: 0.00 Pack years: 0.00 ??? Smokeless tobacco: Never Used Substance and Sexual Activity ??? Alcohol use: No Frequency: Never ??? Drug use: No ??? Sexual activity: Yes Partners: Male control/protection: Surgical Family History Problem Relation Age of Onset ??? Colon polyps Father ??? Colon polyps Brother ??? Colon cancer Paternal Grandfather Review of Systems There were no vitals filed for this visit. Physical Exam General Appearance: Alert, in no acute distress Head: Normocephalic, without obvious abnormality, atraumatic Eyes: Lids and lashes normal, conjunctivae and sclerae normal, no icterus Ears: Ears appear intact with no abnormalities noted Extremities: Moves all extremities well Skin: No bleeding, bruising or rash Neurologic: Cranial nerves 2 - 12 grossly intact, no focal deficits Review of systems was reviewed and positives are noted. All of the remaining review of systems in that system are negative. Katarzyna was seen today for elevated hepatic enzymes. Diagnoses and all orders for this visit: Elevated liver function tests NAFLD (nonalcoholic fatty liver disease) Adenomatous polyp of colon, unspecified part of colon Impressions and plan #1 elevated liver chemistries and nonalcoholic fatty liver disease: She is done well with her modest weight reduction which she will hopefully continue. We will recheck her liverchemistries with her next visit. She is doing quite well. #2 history of colon polyps: She is not yet due for repeat colonoscopy. Jean Elizabeth MD documented in this encounter Plan of Treatment Not on file documented as of this encounter Visit Diagnoses Diagnosis Elevated liver function tests- Primary Other abnormal blood chemistry NAFLD (nonalcoholic fatty liver disease) Adenomatous polyp of colon, unspecified part of colon documented in this encounter Care Teams Security System Engineer Relationship Specialty Start Date End Date Ashley Carrera, [employer] MAKER [address] [facility] [place] [id number] PCP - General Family Medicine 11/14/18 documented as of this encounter
--- OUTSIDE RECORDS SUMMARY | 2024-09-20 11:03 | XMS_ITS | Encounter Summary ---
Author Organization [facility] Address [address] [place] [address] Care Team Providers Care Pumper Gauger Name Role Phone Unavailable Primary Care Provider Unavailabl e Encounter Details Date Type Department Care Team (Late st Contact Info) Description 10/05/2006 Historical Mammograp hy Encounter [facility] [address] [place] [address] Interface, See Report Social History [...] Associated Diagnosis Comments MAMMO HISTORICAL RESULT Routine 10/05/2006 9:54 AM EST documented in this encounter Results * MAMMO HISTORICAL RESULT (10/05/2006 9:54 AM EST) Anatomical Region Laterality Modality Breast Mammography 10/05/2006 9:54 AM EST Narrative 10/05/2006 4:01 PM EST ? [address] ??[place], [place] [address] ? NAME: JAVIERFRANCESCA ? : ??65 ??MR#: [id number] ? LOC: ?? CO ? AGE: 40Y ?? Pt type: CO ?Exam Date: 10/05/[address]54 ? SEX: F ?? AN#:[id number] ?Ck-in#: [id number] ? [facility] ? [address] ? [address] ? [place] ?[place] ?[address] ? Chk-in # ?? Order ?Exam ?[id number] ?? [address] ? [id number] ??BC MAMM SCREENING BILAT DIGIT PNL ? Ord Diag: RTN MMG ? HISTORY: ??40 year old female for routine digital screening. ?? BILATERAL DIGITAL MAMMOGRAM: ?? FILM COMPARISON: ??The exam is compared to prior exams, most recently dated 10/14/04. ?? FINDINGS: ??The breast parenchymal pattern is heterogeneously dense. There is no mass, cluster of microcalcifications or architectural distortion to suggest malignancy. ?? IMPRESSION: ??No findings suspicious for malignancy. ?? RECOMMENDATION: ??Yearly mammography, yearly physical exam, monthly self breast exam. ?? Bi-Rads II, benign. ?? The standard false negative rate of mammography is between 10 and 25%. Complex patterns or increased breast density will markedly elevate the false negative rate of mammography. ?? The images were overread by [employer]. ?? A copy of this report in lay terminology has been sent to the patient. ?/READ BY/ RENEE GARCIA ?/Released By/ MAURICIO GRAVES ?Released By Date/Time: ??10/05/063 ?Antenna Installer: ??JBW ? FINAL ? Page ??1 ? RADIOLOGY REPORT us See Report Interface IMG MAMMOGRAPHY ORDERABLES Final Result documented in this encounter Visit Diagnoses Not on filedocumented in this encounter
--- OUTSIDE RECORDS SUMMARY | 2024-09-20 11:03 | XMS_ITS | Encounter Summary ---
Author Organization [facility] Address [address] [place] [id number] Care Team Providers Care Costuming Supervisor Name Role Phone Deandre Ashley ROSA Primary Care Provider [phone] Reason for Visit * Reason Comments Elevated Hepatic Enzymes Encounter Details Date Type Department Care Team (Late st Contact Info) Description 11/29/2018 2:30 PM EST Office Visit [facility] GA[facility]OLOGY [address] [facility] [address] [place] [phone] Jean Elizabeth MD [address] [facility] [address] [place] [address] Elevated liver function tests (Primary Dx); Family history of polyps in the colon; Adenomatous polyp of ascending colon Social History Tobacco Use Types Packs/Day [...] Sign Reading Time Taken Comments Blood Pressure 147/95 11/29/2018 3:05 PM EST Pulse 72 11/29/2018 3:05 PM EST Temperature - - Respiratory Rate - - Oxygen Saturation - - Inhaled Oxygen Concentration - - Weight 78.5 kg (173 lb) 11/29/2018 3:05 PM EST Height - - Body Mass Index - - documented in this encounter Progress Notes * Shital Dior MA - 11/29/2018 2:30 PM ESTAddended by: SHITAL DIOR on: 10/17/2019 11:27 AM Modules accepted: Orders * Jean Elizabeth MD - 11/29/2018 2:30 PM EST PCP: Ashley Carrera APRN No referring provider defined for this encounter. Chief Complaint Patient presents with ??? Elevated Hepatic Enzymes HPI The patient is a 53-year-old female was found to have incidental elevations in her liver chemistries. She has no significant abdominal pain. Looking back through her records, her alkaline phosphatasewas elevated to 128, AST 47, ALT 62, and normal bilirubin on 09/09/17. She had repeat liver chemistries done on 09/14/18. Her bilirubin was again normal at 0.5. Her alkaline phosphatase was normal at 93. Her AST was minimally elevated at 41 (normal 0-40). Her ALTs was 72. The right upper quadrant was normal. This was done on 11/08/18. No history of liver disease in the family. She has no history of heavy alcohol use. She has no history of IV drug use were homemade tattoos. She has no history of exposure to hepatitis. She has gained about 40 pounds since high school. Her weight is up 173 pounds on our scale. No Known Allergies No current outpatient medications [...] ??? Highest education level: Not on file Social Needs ??? Financial resource strain: Not on file ??? Food insecurity - worry: Not on file ??? Food insecurity - inability: Not on file ??? Transportation needs - medical: Not on file ??? Transportation needs - non-medical: Not on file Occupational History ??? Not on file Tobacco Use ??? Smoking status: Never Smoker ??? Smokeless tobacco: Never Used Substance and Sexual Activity ??? Alcohol use: No Frequency: Never ??? Drug use: No ??? Sexual activity: Not on file Other Topics Concern ??? Not on file Social History Narrative ??? Not on file Family History Problem Relation Age of Onset [...] Neurological: Negative. Hematological: Negative. Psychiatric/Behavioral: Negative. Vitals: 11/29/18 1505 BP: 147/95 Pulse: 72 Physical Exam General Appearance: Alert, in no acute distress Head: Normocephalic, without obvious abnormality, atraumatic Eyes: Lids and lashes normal, conjunctivae and sclerae normal, no icterus, no pallor, corneas clear, PERRLA Ears: Ears appear intact with no abnormalities noted Throat: No oral lesions, no thrush, oral mucosa moist Neck: No adenopathy, supple, trachea midline, no thyromegaly, no JVD Lungs: Clear to auscultation,respirations regular, even and unlabored Heart: Regular rhythm and normal rate, normal S1 and S2, no murmur, no gallop, no rub, no click Chest Wall: Symmetrical respiratory expansion Abdomen: Normal bowel sounds, no masses, no organomegaly, soft non-tender, non- distended, no guarding, no rebound tenderness Extremities: Moves all extremities well, no edema, no cyanosis, no redness Skin: No bleeding, bruising or rash Neurologic: Cranial nerves 2 - 12 grossly intact, no focal deficits Katarzyna was seen today for elevated hepatic enzymes. Diagnoses and all orders for this visit: Elevated liver function tests - Celiac Comprehensive Panel - Mitochondrial Antibodies, M2; Future - Hepatitis B Surface Antibody; Future - Hepatitis B Core Antibody, Total; Future - Hepatitis A Antibody, Total; Future - Soluble Liver Ag (IgG Ab); Future - Iron - Ferritin; Future - Ceruloplasmin; Future - ALVERTO; Future - Alpha - 1 - Antitrypsin Phenotype; Future - Anti-microsomal Antibody; Future - Anti-Smooth Muscle Antibody Titer; Future - Transferrin Saturation Family history of polyps in the colon Adenomatous polyp of ascending colon Pressures and plan #1 elevated liver chemistries: Elevations may be due to nonalcoholic fatty liverdisease. I will check her for signs of autoimmune hepatitis, hemachromatosis, Mykel's disease, primary biliary cirrhosis, and alpha-1 antitrypsin deficiency. We will check her for celiac disease as well. She has had a hepatitis C antibody which was negative. We will check her for hepatitis B and hepatitis A. We have asked her to try a modest weight reduction. 5% of her body weight is about 9 pounds. She is going to try and lose 10 pounds. This may eliminate the problem if it is related to fatty liver. #2 history of colon polyps: She needs a repeat colonoscopy as she had a sessile adenomatous polyp removed in the right colon in a piecemeal fashion. We will get that scheduled at some point in the near future. Jean Elizabeth MD documented in this encounter Plan of Treatment Scheduled Orders Name Type Priority Associated Diagnoses Orde r Schedule Transferrin Saturation Lab Routine Elevated liver function tests Expected: 10/17/2019 (Approximate), Expires: 10/17/2020 documented as of this encounter Results * Soluble Liver Ag (IgG Ab) (10/17/2019 2:46 PM EST) Soluble Liver Antigen, IgG 0.7 0.0 - 20.0 units 10/24/2019 3:08 PM EST [facility] Comment: ?Negative ?0.0 - 20.0 ?Equivocal ??20.1 - 24.9 ?Positive ? >24.9 Blood Venipuncture / Unknown 10/17/2019 2:46 PM EST 10/17/2019 2:46 PM EST Narrative [facility] - 10/24/2019 3:08 PM EST Performed at: ??01 - [address] ??[id number] Sr. Unix System Administrator: Maria M Carvajal MD, Phone: ??[phone] us Jean Elizabeth MD LAB BLOOD [place] [address], * Mitochondrial Antibodies, M2 (10/17/2019 2:46 PM EST) Mitochondrial Ab <20.0 0.0 - 20.0 Units 10/19/2019 3:08 PM EST [facility] Comment: ?Negative ?0.0 - 20.0 ?Equivocal ??20.1 - 24.9 ?Positive ? >24.9 Mitochondrial (M2) Antibodies are found in 90-96% of patients with primary biliary cirrhosis. Blood Venipuncture / Unknown 10/17/2019 2:46 PM EST 10/17/2019 2:46 PM EST [facility]ative [facility] - 10/19/2019 3:08 PM EST Performed at: ??01 - [facility] [address] [facility], [place], [place] ??[id number] Sr. Unix System Administrator: Sameer Bustamante PhD, Phone: ??[phone] Jean Elziabeth MD LAB BLOOD ORDERABLES Diana l Result [facility] [address] [place] [address], * Iron (10/17/2019 2:46 PM EST) [facility] Iron 76 37 - 145 mcg/dL 10/17/2019 10:43 PM EST [facility] Blood Venipuncture / Unknown 10/17/2019 2:46 PM EST 10/17/2019 2:46 PM EST Jean Elizabeth MD LAB BLOOD ORDERABLES Diana l Result Performing Organization Address [facility] Co de Phone Number [facility]
[address] [place] [address], * (ABNORMAL) Hepatitis B Surface Antibody (10/17/2019 2:46 PM EST) [facility] Hep B S Ab Reactive(A ) Non-Reacti ve 10/17/2019 11:11 PM EST [facility] Blood Venipuncture / Unknown 10/17/2019 2:46 PM EST 10/17/2019 2:46 PM EST Jean Elizabeth MD LAB BLOOD ORDERABLES Diana l Result Performing Organization Address City/[facility]/ZIP Co de Phone Number [facility]
[address] [place] [address], [place] [phone] * Hepatitis B Core Antibody, Total (10/17/2019 2:46 PM EST) [facility] Hep B Core Total Ab Negative Negative 10/20/2019 10:09 AM EST [facility] Blood Venipuncture / Unknown 10/17/2019 2:46 PM EST 10/17/2019 2:46 PM EST Narrative [facility] - 10/20/2019 10:09 AM EST Performed at: ??01 - [address] ??[id number] Sr. Unix System Administrator: Sameer Bustamante PhD, Phone: ??[phone] Jean Elizabeth MD LAB BLOOD ORDERABLES Diana l Result Performing Organization Address City/[facility]/ZIP Co de Phone Number [facility] [address] [place] [address], * Hepatitis A Antibody, Total (10/17/2019 2:46 PM EST) Hep A Total Ab Negative Negative 10/19/2019 7:08 AM EST [facility] Blood Venipuncture / Unknown 10/17/2019 2:46 PM EST 10/17/2019 2:46 PM EST [facility] - 10/19/2019 7:08 AM EST Performed at: ??01 - [address] ??[id number] Sr. Unix System Administrator: Sameer Bustamante PhD, Phone: ??[phone] Jean Elizabeth MD LAB BLOOD ORDERABLES Diana l Result Performing Organization Address [facility] Co de Phone Number [facility] [address] [place] [address], * (ABNORMAL) Ferritin (10/17/2019 2:46 PM EST) Pathologist [facility] Ferritin 264.00(H) 13.00 - 150.00 ng/mL 10/17/2019 10:49 PM EST [facility] Blood Venipuncture / Unknown 10/17/2019 2:46 PM EST 10/17/2019 2:46 PM EST Jean Elizabeth MD LAB BLOOD ORDERABLES Diana l Result Performing Organization Address City/[facility]/ZIP Co de Phone Number [facility]
[address] [place] [address], * Ceruloplasmin (10/17/2019 2:46 PM EST) Ceruloplasmin 25 19 - 39 mg/dL 10/17/2019 10:54 PM EST [facility] Blood Venipuncture / Unknown 10/17/2019 2:46 PM EST 10/17/2019 2:46 PM EST us Jean Elizabeth MD LAB BLOOD ORDERABLES Diana mynor Result [facility]
[address] [place] [address], * Alpha - 1 - Antitrypsin Phenotype (10/17/2019 2:46 PM EST) A-1 Antitrypsin 140 101 - 187 mg/dL 10/23/2019 5:07 PM EST [facility] Phenotype MM 10/23/2019 5:07 PM EST [facility] Comment: ? Phenotype ?? Population ?A-1-AT Concentration ? Incidence % ?Reference Interval ? MM ?86.5% ?96 - 189 ? MS ? 8.0% ?83 - 161 ? MZ ? 3.9% ?60 - 111 ? FM ? 0.4% ?93 - 191 ? SZ ? 0.3% ?42 - ??75 ? SS ? 0.1% ?62 - 119 ? ZZ ? 0.05% ? 16 - ??38 ? FS ? 0.05% ? 70 - 128 ? FZ ?Unknown ?44 - ??88 ? FF ?Unknown ?Unknown Blood Venipuncture / Unknown 10/17/2019 2:46 PM EST 10/17/2019 2:46 PM EST Narrative [facility] - 10/23/2019 5:07 PM EST Performed at: ??01 - [facility] [address] ??[id number] Sr. Unix System Administrator: Sameer Bustamante PhD, Phone: ??[phone] Performed at: ??02 - [facility] [address] ??[id number] Sr. Unix System Administrator: Maria M Carvajal MD, Phone: ??[phone] us Jean Elizabeth MD LAB BLOOD ORDERABLES Diana lowe Result [facility] [address] [place] [address], * Celiac Comprehensive Panel (10/17/2019 2:46 PM EST) Gliadin Deamidated Peptide Ab, IgA 3 0 - 19 units 10/19/2019 5:07 PM EST [facility] Comment: ? Negative ? 0 - 19 ? Weak Positive ? 20 - 30 ? Moderate to Strong Positive ?? >30 Deaminated Gliadin Ab IgG 2 0 - 19 units 10/19/2019 5:07 PM EST [facility] Comment: ? Negative ? 0 - 19 ? Weak Positive ? 20 - 30 ? Moderate to Strong Positive ?? >30 Tissue Transglutaminase IgA <2 0 - 3 U/mL 10/19/2019 5:07 PM EST [facility] Comment: ?Negative ?0 - ??3 ?Weak Positive ?? 4 - 10 ?Positive ? >10 Tissue Transglutaminase (tTG) has been identified as the endomysial antigen. ??Studies have demonstr- ated that endomysial IgA antibodies have over 99% specificity for gluten sensitive enteropathy. Tissue Transglutaminase IgG <2 0 - 5 U/mL 10/19/2019 5:07 PM EST [facility] Comment: ?Negative ?0 - 5 ?Weak Positive ?? 6 - 9 ?Positive ? >9 Endomysial IgA Negative Negative 10/19/2019 5:07 PM EST [facility] IgA 169 87 - 352 mg/dL 10/19/2019 5:07 PM EST [facility] Blood Venipuncture / Unknown 10/17/2019 2:46 PM EST 10/17/2019 2:46 PM EST Narrative [facility] - 10/19/2019 5:07 PM EST Performed at: ??01 - [address] ??[id number] Sr. Unix System Administrator: Sameer Bustamante PhD, Phone: ??[phone] us Jean Elizabeth MD LAB BLOOD ORDERABLES Diana l Result Performing Organization Address City/State/[facility] Co de Phone Number [facility] [address] [place] [address], * Anti-Smooth Muscle Antibody Titer (10/17/2019 2:46 PM EST) Smooth Muscle Ab 7 0 - 19 Units 10/19/2019 3:08 PM EST [facility] Comment: ? Negative ? 0 - 19 ? Weak positive ? 20 - 30 ? Moderate to strong positive ? >30 Actin Antibodies are found in 52-85% of patients with autoimmune hepatitis or chronic active hepatitis and in 22% of patients with primary biliary cirrhosis. Blood Venipuncture / Unknown 10/17/2019 2:46 PM EST 10/17/2019 2:46 PM EST Narrative [facility] - 10/19/2019 3:08 PM EST Performed at: ??01 - [facility] [address] [place], [place] ??[id number] Sr. Unix System Administrator: Sameer Bustamante PhD, Phone: ??[phone] Jean Elizabeth MD LAB BLOOD ORDERABLES Diana l Result Performing Organization Address [facility]/ZIP Co de Phone Number [facility] [address] [place] [address], * Anti-microsomal Antibody (10/17/2019 2:46 PM EST) Liver Fraction: <1.0 0.0 - 20.0 Units 10/19/2019 3:08 PM EST [facility] Comment: ?Negative ?0.0 - 20.0 ?Equivocal ??20.1 - 24.9 ?Positive ? >24.9 LKM type 1 antibodies are detected in patients with autoimmune hepatitis type 2 and in up to 8% of patients with chronic HCV infection. Blood Venipuncture / Unknown 10/17/2019 2:46 PM EST 10/17/2019 2:46 PM EST [facility] - 10/19/2019 3:08 PM EST Performed at: ??01 - [facility] [address] ??[id number] Sr. Unix System Administrator: Sameer Bustamante PhD, Phone: ??[phone] Jean Elizabeth MD LAB BLOOD ORDERABLES Diana l Result Performing Organization Address [facility]/ZIP Co de Phone Number [facility] [address] [place] [address], * ALVERTO (10/17/2019 2:46 PM EST) ALVERTO Direct Negative Negative 10/19/2019 1:08 PM EST [facility] Blood Venipuncture / Unknown 10/17/2019 2:46 PM EST 10/17/2019 2:46 PM EST Narrative [facility] - 10/19/2019 1:08 PM EST Performed at: ??01 - [facility] [address] ??[id number] Sr. Unix System Administrator: Sameer Bustamante PhD, Phone: ??[phone] us Jean Elizabeth MD LAB BLOOD ORDERABLES Diana l Result [facility] [address] [place] [address], documented in this encounter Visit Diagnoses Diagnosis Elevated liver function tests- Primary Other abnormal blood chemistry Family history of polyps in the colon Family history of colonic polyps Adenomatous polyp of ascending colon documented in this encounter Care Teams Costuming Supervisor Relationship Specialty Start Date End Date Ashley Carrera APRN [address] [facility] [place] [address] PCP - General Family Medicine 11/14/18 documented as of this encounter
--- OUTSIDE RECORDS SUMMARY | 2024-09-20 11:03 | XMS_ITS | Encounter Summary ---
Author Organization [facility] Address [address] [place] [id number] Care Team Providers Care Guard Lieutenant Name Role Phone Ashley Carrera APRN Primary Care Provider [phone] Reason for Visit * Reason Comments Follow-up elevated LFT's Encounter Details Date Type Department Care Team (Late st Contact Info) Description 10/10/2019 2:15 PM EST Office Visit [facility] GASTROENTEROLOGY [address] [facility] [address] [place] [phone] Jean Elizabeth MD [address] [facility] [address] [place], [place] [phone] Elevated liver function tests (Primary Dx) Social History Tobacco Use Types Packs/Day Years [...] Sign Reading Time Taken Comments Blood Pressure 123/64 10/10/2019 2:38 PM EST Pulse 66 10/10/2019 2:38 PM EST Temperature - - Respiratory Rate - - Oxygen Saturation - - Inhaled Oxygen Concentration - - Weight 72.1 kg (159 lb) 10/10/2019 2:38 PM EST Height - - Body Mass Index - - documented in this encounter Progress Notes * Shital Dior MA - 10/10/2019 2:15 PM ESTAddended by: SHITAL DIOR on: 10/17/2019 11:27 AM Modules accepted: Orders * Jean Elizabeth MD - 10/10/2019 2:15 PM EST PCP: Ashley Carrera APRN No referring provider defined for this encounter. Chief Complaint Patient presents with ??? Follow-up elevated LFT's HPI Patient is a 53-year-old with a history of mildly elevated liver chemistries. We did order full serologies on her first visit but they were never done apparently. Her liver chemistries have improved on her rechecks. She does have some steatosis noted on a Rodas fibrosure. She has been able to lose an additional 11 pounds since I last saw her. She feels well. No Known Allergies No current outpatient medications [...] cancer Paternal Grandfather Review of Systems Constitutional: Negative. HENT: Negative for trouble swallowing and voice change. Gastrointestinal: Negative. Vitals: 10/10/19 1438 BP: 123/64 Pulse: 66 Physical Exam General Appearance: Alert, in no acute distress Head: Normocephalic, without obvious abnormality, atraumatic Eyes: Lids and lashes normal, conjunctivae and sclerae normal, no icterus, no pallor, corneas clear, PERRLA Ears: Ears appear intact with no abnormalities noted Extremities: Moves all extremities well, no edema, no cyanosis, no redness Skin: No bleeding, bruising or rash Neurologic: Cranial nerves 2 - 12 grossly intact, no focal deficits Review of systems was reviewed and positives are noted. All of the remaining review of systems in that system are negative. Katarzyna was seen today for follow-up. Diagnoses and all orders for this visit: Elevated liver function tests - Hepatic Function Panel Impressions and plan #1 elevated liver tests: Most likely were dealing with a little fatty liver. Inever got all the serologies to check for other hereditary causes or causes such as autoimmune hepatitis. I am going to see if we can get those ordered. Number to recheck her liver test. Hopefully her liver tests have normalized with her modest weight reduction. Her ultrasound was normal. We will follow back up with her. Jean Elizabeth MD documented in this encounter Plan of Treatment Not on file documented as of this encounter Results * (ABNORMAL) Hepatic Function Panel (10/17/2019 2:46 PM EST) Total Protein 7.4 6.0 - 8.5 g/dL 10/17/2019 10:43 PM [facility] Albumin 4.50 3.50 - 5.20 g/dL 10/17/2019 10:43 PM [facility] ALT (SGPT) 39(H) 1 - 33 U/L 10/17/2019 10:43 PM [facility] AST (SGOT) 24 1 - 32 U/L 10/17/2019 10:43 PM [facility] Alkaline Phosphatase 81 39 - 117 U/L 10/17/2019 10:43 PM [facility] Total Bilirubin 0.4 0.2 - 1.2 mg/dL 10/17/2019 10:43 PM [facility] Bilirubin, Direct <0.2(L) 0.2 - 0.3 mg/dL 10/17/2019 10:43 PM [facility] Bilirubin, Indirect 10/17/2019 10:43 PM [facility] Comment:Unable to calculate Blood Venipuncture / Unknown 10/17/2019 2:46 PM EST 10/17/2019 2:46 PM EST us Jean Elizabeth MD LAB BLOOD ORDERABLES Diana lowe Result [facility]
[address] [place] [address], documented in this encounter Visit Diagnoses Diagnosis Elevated liver function tests- Primary Other abnormal blood chemistry documented in this encounter Care Teams Guard Lieutenant Relationship Specialty Start Date End Date Ashley Carrera APRN [address] [place] [address] [place] [address] PCP - General Family Medicine 11/14/18 documented as of this encounter
--- OUTSIDE RECORDS SUMMARY | 2024-09-20 11:03 | XMS_ITS | Encounter Summary ---
Author Organization [facility] Address [address] [place] [address] Care Team Providers Care Casino Worker Name Role Phone Unavailable Primary Care Provider Unavailabl e Encounter Details Date Type Department Care Team (Late st Contact Info) Description 09/18/2010 Historical Mammograp hy Encounter [facility] [address] [place] [address] Interface, See Report Social History [...] Associated Diagnosis Comments MAMMO HISTORICAL RESULT Routine 09/18/2010 9:48 AM EST documented in this encounter Results * MAMMO HISTORICAL RESULT (09/18/2010 9:48 AM EST) Anatomical Region Laterality Modality Breast Mammography 09/18/2010 9:48 AM EST Narrative 09/19/2010 5:51 PM EST ?[facility] ? [address] ??[place], [place] [address] ? NAME: FRANCESCA CARLSON ? : ??65 ??MR#: [id number] ? LOC: ?? DIS ? AGE: 44Y ?? Pt type: CO ?Exam Date: 09/18/10947 ? SEX: F ?? AN#:[id number] ?Ck-in#: [id number] ? JITENDRA,BRANDON ? [address] ? [address] ? [place] ?[place] ?[address] ? Chk-in # ?? Order ?Exam ?[id number] ?? 0001 ? [id number] ??BC MAMM SCREEN BILAT DIG PNL ? Ord Diag: SCREENING ? HISTORY: ??The patient is a 44-year-old female with positive family history of breast cancer in her grandmother. ?? BILATERAL DIGITAL SCREENING MAMMOGRAM: ?? FILM COMPARISON: ??The exam is compared to the most recent prior exams dated 09/20/08. ?? FINDINGS: The breast parenchymal pattern is heterogeneously dense. Nodularity may be minimally increased on the right in the upper outer quadrant. Spot compression views are recommended. This may represent a lymph node but this is not clearly a lymph node. ??The left breast is stable. ?? BI-RADS CATEGORY 0, INCOMPLETE. ?? RECOMMENDATION: Spot compression views on the right. ?? The density and complexity of the parenchymal pattern in this patient may decrease the sensitivity of mammography. ??The standard false negative rate of mammography is between 10% and 25%. ??Complex patterns or increased breast density will markedly elevate the false negative rate of mammography. Physical exam is of utmost importance for cancer detection in this patient. ?? iCAD was utilized. ?? A letter, in lay terminology, with the results of this exam will be mailed to the patient. ?/READ BY/ RENEE YOST ?/Released By/ RENEE YOST ?Released By Date/Time: ??09/19/101745 ?Dermatology Teacher: ??LS ? FINAL ? Page ??1 ? RADIOLOGY REPORT us See Report Interface IMG MAMMOGRAPHY ORDERABLES Final Result documented in this encounter Visit Diagnoses Not on filedocumented in this encounter
--- OUTSIDE RECORDS SUMMARY | 2024-09-20 11:03 | XMS_ITS | Encounter Summary ---
Author Organization [facility] Address [address] [place] [address] Care Team Providers Care Size Painter Name Role Phone Deandre Ashley ROSA Primary Care Provider [phone] Encounter Details Date Type Department Care Team (Late st Contact Info) Description 10/17/2019 2:50 PM EST Lab [facility] [address] [address] Elevated liver function tests; Family history of polyps in the colon; [...] Procedure Name Priority Date/Time Associated Diagnosis Comments SOLUBLE LIVER AG (IGG AB) Routine 10/17/2019 2:46 PM EST Elevated liver function tests [id number] PHENOTYPE Routine 10/17/2019 2:46 PM EST Elevated liver function tests Family history of polyps in the colon Adenomatous polyp of ascending colon CELIAC COMPREHENSIVE PANEL Routine 10/17/2019 2:46 PM EST Elevated liver function tests HEPATITIS A ANTIBODY, TOTAL Routine 10/17/2019 2:46 PM EST Elevated liver function tests MITOCHONDRIAL ANTIBODIES, M2 Routine 10/17/2019 2:46 PM EST Elevated liver function tests CERULOPLASMIN Routine 10/17/2019 2:46 PM EST Elevated liver function tests HEPATITIS B CORE ANTIBODY, TOTAL Routine 10/17/2019 2:46 PM EST Elevated liver function tests LIVER-KIDNEY MICROSOMAL AB Routine 10/17/2019 2:46 PM EST Elevated liver function tests ACTIN SMOOTH MUSCLE ANTIBODY Routine 10/17/2019 2:46 PM EST Elevated liver function tests HEPATITIS B SURFACE ANTIBODY Routine 10/17/2019 2:46 PM EST Elevated liver function tests ALVERTO Routine 10/17/2019 2:46 PM EST Elevated liver function tests IRON Routine 10/17/2019 2:46 PM EST Elevated liver function tests FERRITIN Routine 10/17/2019 2:46 PM EST Elevated liver function tests HEPATIC FUNCTION PANEL Routine 9 2:46 PM EST Elevated liver function tests documented in this encounter Results * (ABNORMAL) Hepatic Function Panel (10/17/2019 2:46 PM EST) Total Protein 7.4 6.0 - 8.5 g/dL 10/17/2019 10:43 PM EST [facility] Albumin 4.50 3.50 - 5.20 g/dL 10/17/2019 10:43 PM EST [facility] ALT (SGPT) 39(H) 1 - 33 U/L 10/17/2019 10:43 PM EST [facility] AST (SGOT) 24 1 - 32 U/L 10/17/2019 10:43 PM EST [facility] Alkaline Phosphatase 81 39 - 117 U/L 10/17/2019 10:43 PM EST [facility] Total Bilirubin 0.4 0.2 - 1.2 mg/dL 10/17/2019 10:43 PM EST [facility] Bilirubin, Direct <0.2(L) 0.2 - 0.3 mg/dL 10/17/2019 10:43 PM EST [facility] Bilirubin, Indirect 10/17/2019 10:43 PM EST [facility] Comment:Unable to calculate Blood Venipuncture / Unknown 10/17/2019 2:46 PM EST 10/17/2019 2:46 PM EST Jean Elizabeth MD LAB BLOOD ORDERABLES Diana lowe Result [facility]
[address] [place] [address], * Soluble Liver Ag (IgG Ab) (10/17/2019 2:46 PM EST) Soluble Liver Antigen, IgG 0.7 0.0 - 20.0 units 10/24/2019 3:08 PM EST [facility] Comment: ?Negative ?0.0 - 20.0 ?Equivocal ??20.1 - 24.9 ?Positive ? >24.9 Blood Venipuncture / Unknown 10/17/2019 2:46 PM EST 10/17/2019 2:46 PM EST Narrative [facility] - 10/24/2019 3:08 PM EST Performed at: ??01 - [address] ??[id number] Glove Parts Inspector: Maria M Carvajal MD, Phone: ??[phone] Jean Elizabeth MD LAB BLOOD ORDERABLES Diana l Result Performing Organization Address [facility] de Phone Number [facility] [address] [place] [address], * Mitochondrial Antibodies, M2 (10/17/2019 2:46 PM EST) [facility] Mitochondrial Ab <20.0 0.0 - 20.0 Units 10/19/2019 3:08 PM EST [facility] Comment: ?Negative ?0.0 - 20.0 ?Equivocal ??20.1 - 24.9 ?Positive ? >24.9 Mitochondrial (M2) Antibodies are found in 90-96% of patients with primary biliary cirrhosis. Blood Venipuncture / Unknown 10/17/2019 2:46 PM EST 10/17/2019 2:46 PM EST Narrative [facility] - 10/19/2019 3:08 PM EST Performed at: ??01 - [facility] [address] ??[id number] [employer] Inspector: Sameer Bustamante PhD, Phone: ??[phone] Jean Elizabeth MD LAB BLOOD ORDERABLES Diana l Result Performing Organization Address [facility] de Phone Number [facility] [address] [place] [address], * Iron (10/17/2019 2:46 PM EST) Iron 76 37 - 145 mcg/dL 10/17/2019 10:43 PM EST [facility] Blood Venipuncture / Unknown 10/17/2019 2:46 PM EST 10/17/2019 2:46 PM EST Jean Elizabeth MD LAB BLOOD ORDERABLES Diana l Result Performing Organization Address City/[facility]/ZIP Co de Phone Number [facility]
[address] [place] [address], * (ABNORMAL) Hepatitis B Surface Antibody (10/17/2019 2:46 PM EST) Hep B S Ab Reactive(A ) Non-Reacti ve 10/17/2019 11:11 PM EST [facility] Blood Venipuncture / Unknown 10/17/2019 2:46 PM EST 10/17/2019 2:46 PM EST Jean Elizabeth MD LAB BLOOD ORDERABLES Diana l Result Performing Organization Address [facility] Co de Phone Number [facility]
[address] [place] [address], * Hepatitis B Core Antibody, Total (10/17/2019 2:46 PM EST) Hep B Core Total Ab Negative Negative 10/20/2019 10:09 AM EST [facility] Blood Venipuncture / Unknown 10/17/2019 2:46 PM EST 10/17/2019 2:46 PM EST Narrative [facility] - 10/20/2019 10:09 AM EST Performed at: ??01 - [facility] ??[id number] [employer] Inspector: Sameer Bustamante PhD, Phone: ??[phone] Jean Elizabeth MD LAB BLOOD ORDERABLES Diana l Result Performing Organization Address City/[facility]/ZIP Co de Phone Number [facility] [address] [place] [address], * Hepatitis A Antibody, Total (10/17/2019 2:46 PM EST) Pathologist [facility] Hep A Total Ab Negative Negative 10/19/2019 7:08 AM EST [facility] Blood Venipuncture / Unknown 10/17/2019 2:46 PM EST 10/17/2019 2:46 PM EST Narrative [facility] - 10/19/2019 7:08 AM EST Performed at: ?? - [facility] [address] ??[id number] [employer] Inspector: Sameer Bustamante PhD, Phone: ??[phone] Jean Elizabeth MD LAB BLOOD ORDERABLES Diana l Result Performing Organization Address City/[facility]/ZIP Co de Phone Number [facility] [address] [place] [address], * (ABNORMAL) Ferritin (10/17/2019 2:46 PM EST) [facility] Ferritin 264.00(H) 13.00 - 150.00 ng/mL 10/17/2019 10:49 PM EST [facility] Blood Venipuncture / Unknown 10/17/2019 2:46 PM EST 10/17/2019 2:46 PM EST Jean Elizabeth MD LAB BLOOD ORDERABLES Diana l Result [facility]
[address] [place] [address], * Ceruloplasmin (10/17/2019 2:46 PM EST) [facility] Ceruloplasmin 25 19 - 39 mg/dL 10/17/2019 10:54 PM EST [facility] Blood Venipuncture / Unknown 10/17/2019 2:46 PM EST 10/17/2019 2:46 PM EST us Jean Elizabeth MD LAB BLOOD ORDERKAVITHA Ortiz l Result [facility]
[address] [place] [address], * Alpha - 1 - Antitrypsin Phenotype [...] PM EST Performed at: ??01 - [facility] [address] [place], [place] ??[id number] [employer] Inspector: Sameer Bustamante PhD, Phone: ??[phone] Performed at: ??02 - [facility] [address] ??[id number] [employer] Inspector: Maria M Carvajal MD, Phone: ??[phone] us Jean Elizabeth MD LAB BLOOD ORDERABLES Diana l Result Performing Organization Address City/State/[facility] Co de Phone Number [facility] [address] [place] [address], * Celiac Comprehensive Panel (10/17/2019 2:46 PM [...] 5:07 PM EST Performed at: ??01 - [address] ??[id number] [employer] Inspector: Sameer Bustamante PhD, Phone: ??[phone] Jean Elizabeth MD LAB BLOOD ORDERABLES Diana l Result Performing Organization Address [facility] de Phone Number [facility] [address] [place] [address], * Anti-Smooth Muscle Antibody Titer (10/17/2019 2:46 [...] 3:08 PM EST Performed at: ??01 - [address] ??[id number] [employer] Inspector: Sameer Bustamante PhD, Phone: ??[phone] Jean Elizabeth MD LAB BLOOD ORDERABLES Diana l Result Performing Organization Address [facility] de Phone Number [facility] [address] [place], [place] [address] [phone] * Anti-microsomal Antibody (10/17/2019 2:46 PM EST) Pathologist [facility] Liver Fraction: <1.0 0.0 - 20.0 Units 10/19/2019 3:08 PM EST [facility] Comment: ?Negative ?0.0 - 20.0 ?Equivocal ??20.1 - 24.9 ?Positive ? >24.9 LKM type 1 antibodies are detected in patients with autoimmune hepatitis type 2 and in up to 8% of patients with chronic HCV infection. Blood Venipuncture / Unknown 10/17/2019 2:46 PM EST 10/17/2019 2:46 PM EST Narrative [facility] - 10/19/2019 3:08 PM EST Performed at: ??01 - [address] ??[id number] [employer] Inspector: Sameer Bustamante PhD, Phone: ??[phone] Jean Elizabeth MD LAB BLOOD ORDERABLES Diana l Result [facility] [address] [place] [address], * ALVERTO (10/17/2019 2:46 PM EST) Pathologist [facility] ALVERTO Direct Negative Negative 10/19/2019 1:08 PM EST [facility] Blood Venipuncture / Unknown 10/17/2019 2:46 PM EST 10/17/2019 2:46 PM EST Narrative [facility] - 10/19/2019 1:08 PM EST Performed at: ??01 - [address], [place] ??[id number] Gl[employer] Inspector: Sameer Bustamante PhD, Phone: ??[phone] Jean Elizabeth MD LAB BLOOD ORDERABLES Diana lowe Result [facility] [address] [place] [address], documented in this encounter Visit Diagnoses Diagnosis Elevated liver function tests Other abnormal blood chemistry Family history of polyps in the colon Family history of colonic polyps Adenomatous polyp of ascending colon documented in this encounter Care Teams Size Painter Relationship Specialty Start Date End Date Ashley Carrera APRN [address] [place] [address] [place] [address] PCP - General Family Medicine 11/14/18 documented as of this encounter
--- OUTSIDE RECORDS SUMMARY | 2024-09-20 11:03 | XMS_ITS | Encounter Summary ---
Author Organization [facility] yste Address [address] [place] [address] Care Team Providers Care Floor Attendant Name Role Phone Unavailable Primary Care Provider Unavailabl e Encounter Details Date Type Department Care Team (Late st Contact Info) Description 10/10/2010 Historical Mammograp hy Encounter [facility] [address] [place] [address] Interface, See Report Social History [...] Associated Diagnosis Comments MAMMO HISTORICAL RESULT Routine 10/10/2010 7:56 AM EST documented in this encounter Results * MAMMO HISTORICAL RESULT (10/10/2010 7:56 AM EST) Anatomical Region Laterality Modality Breast Mammography 10/10/2010 7:56 AM EST Narrative 10/10/2010 12:00 PM EST ?[facility] ? [address] ??[place], [place] [address] ? NAME: JAVIREFRANCESCA ? : ??65 ??MR#: [id number] ? LOC: ?? CO ? AGE: 44Y ?? Pt type: CO ?Exam Date: 10/10/106 ? SEX: F ?? AN#:[id number] ?Ck-in#: [id number] ? [facility] ? [address] ? [address] ? [place] ?[place] ?[address] ? Chk-in # ?? Order ?Exam ?[id number] ?? 0001 ? [id number] ??BC MAMM DIAG UNILAT DIG PNL*R ? Ord Diag: ABN MMG ? RIGHT DIGITAL DIAGNOSTIC MAMMOGRAM ?? CLINICAL HISTORY: ??44-year-old patient recalled from recent screening examination dated 09/18/2010 for further evaluation of the right breast. ?? TECHNIQUE: ??Right CC and MLO focal compression views were performed as well as rolled right CC views. ?? COMPARISON: ??09/18/2010, 09/20/2008, and 10/05/2006. ? FINDINGS: ??The focal asymmetry noted superiorly in the right breast on the MLO projection improved with focal compression imaging. The focal asymmetry noted laterally in the right breast on the CC projection did persist somewhat with focal compression imaging. However, it dispersed with rolled CC imaging with the tissue appearing more similar to the prior study. No mass or distortion is confirmed in the right upper-outer quadrant on the additional views obtained today. ?? IMPRESSION: ??ACR BI-RADS CATEGORY: ??1 NEGATIVE ?? No mammographic abnormality confirmed in the right breast. ?? RECOMMENDATION: ??Recommend patient continue with routine annual screening mammography. ??She will be due after 09/18/2011 for her next screening exam. ?? iCAD was utilized. ? FINAL ?CONTINUED ?Page ??1 ? RADIOLOGY REPORT ?[facility] ? [address] ??[place], [place] [address] ? NAME: FRANCESCA CARLSON ? : ??[birth year] ??MR#: [id number] ? LOC: ?? CO ? AGE: 44Y ?? Pt type: CO ?Exam Date: 10/10/10755 ? SEX: F ?? AN#:[id number] ?Ck-in#: [id number] ? [facility] ? [address] ? [address] ? [place] ?[place] ?[address] ? Checkin-Exam Code Summary ? [id number] The standard false-negative rate of mammography is between 10 and 25%. Complex patterns or increased breast density will markedly elevate the false-negative rate of mammography. ? A letter, in lay terminology, with the results of this exam was given to the patient at the time of the visit. ?/READ BY/ IDANIA PEDERSEN ?/Released By/ IDANIA PEDERSEN ?Released By Date/Time: ??12/10/10 1150 ?Coding Consultant: ??DME ? FINAL ? Page ??2 ? RADIOLOGY REPORT us See Report Interface IMG MAMMOGRAPHY ORDERABLES Final Result documented in this encounter Visit Diagnoses Not on filedocumented in this encounter
--- OUTSIDE RECORDS SUMMARY | 2024-09-20 11:03 | XMS_ITS | Clinical Summary ---
Author Organization [facility] Address [address] [place] [address] Care Team Providers Care Credit And Loan Collections Supervisor Name Role Phone Cookie Carreraissa ROSA Primary Care Provider [phone] Allergies No known active allergies Medications sodium-potassiu m-magnesium sulfates (Suprep Bowel Prep Kit) 17.5-3.13-1.6 GM/177ML solution oral solution Take 1 bottle by mouth Every 12 (Twelve) Hours. Use as directed by provider for colonoscopy prep 354 mL 2 Active Active Problems Problem Noted Date Diagnosed Date NAFLD (nonalcoholic fatty liver disease) 020 Elevated liver function tests 11/29/2018 Family history of polyps in the colon 11/29/2018 Adenomatous polyp of colon 11/29/2018 Family History Medical History Relation Name Comments Colon polyps Brother Dwayne Morin Colon polyps Father Estevan Morin Colon cancer Paternal Grandfather Yobany Morin Relation Name Status Comments Brother Dwayne Morin Father Estevan Morin Paternal Grandfather Yobany Morin Social History Tobacco Use Types Packs/Day Years Used Date Smoking Tobacco: Former Cigarettes Smokeless Tobacco: Never Alcohol Use Standard Drinks/Week Comments No 0 (1 standard drink = 0.6 oz pur e alcohol) AUDIT-C Answer Date Recorded Frequency of Alcohol Consumption Never 11/29/2018 Average Number of Drinks Not on file 019 Frequency of Binge Drinking Not on file 11/02 Abuse Screen Answer Date Recorded Unsafe at Home or Work/School Not on file Feels Threatened by Someone? Not on file 07/2023 Does Anyone Keep You from Co ntacting Others or Doint Things Outside the Home? Not on file 08/09/2023 Physical Sign of Abuse Present Not on file 1 Housing Stability Answer Date Recorded Current Living Arrangements Not on file 07/2023 Potentially Unsafe Housing Conditions Not on jodi e 08/09/2023 Family and Community Support Answer Nabil e Recorded Help with Day-to-Day Activities Not on file 08/09/2023 Lonely or Isolated Not on file 08/09/2023 Employment Answer Date Recorded Do you want help finding or keeping work or a sarah b? Not on file 08/09/2023 Disabilities Answer Date Recorded Concentrating, Remembering, or Making Decisions Difficulty Not on file 08/09/2023 Doing Errands Independently Difficulty Not on fi le 08/09/2023 Education Answer Date Recorded Help with school or training? Not on file Preferred Language Not on file 08/09/2023 Comments Unknown Sex and Gender Information Value Date Recorded Sex Assigned at Not on file Legal Sex Female 10:48 AM EDT Gender Identity Not on file Sexual Orientation Not on file Last Filed Vital Signs Vital Sign Reading Time Taken Comments Blood Pressure 123/64 10/10/2019 2:38 PM EST Pulse 66 10/10/2019 2:38 PM EST Temperature - - Respiratory Rate - - Oxygen Saturation - - Inhaled Oxygen Concentration - - Weight 72.1 kg (159 lb) 10/10/2019 2:38 PM EST Height - - Body Mass Index - - Plan of Treatment Health Maintenance Due Date Last Done Comments Annual Gynecologic Pelvic and Breast Exam 1965 COLOGUARD 1965 COLON CANCER SCREENING 5 YEA R SIGMOIDOSCOPY 1965 CT COLONOGRAPHY 1965 FECAL OCCULT BLOOD TEST 1965 FIT Testing (1 year) 1965 MAMMOGRAM 1965 Pneumococcal Vaccine 0-64 (1 of 2 - PCV) 1971 TDAP/TD VACCINES (1 - Tdap) 1984 ZOSTER VACCINE (1 of 2) 2015 ANNUAL PHYSICAL 11/29/2018 HEPATITIS C SCREENING 11/29/2018 PAP SMEAR 11/29/2018 INFLUENZA VACCINE 06/01/2024 11/04/2017 COVID-19 Vaccine ( season) 2024 COLONOSCOPY 03/05/2025 03/05/2022, 12/20/2018 COLORECTAL CANCER SCREENING 03/05/2025 Procedures Procedure Name Priority Date/Time Associated Diagnosis Comments SCANNED - COLONOSCOPY 03/05/2022 from Last 3 Months or Most Recently Relevant to Health Maintenance Results * SCANNED - COLONOSCOPY (03/05/2022) Jean Elizabeth MD CHART REVIEW TABS Diana l Result from Last 3 Months or Most Recently Relevant to Health Maintenance Insurance [facility] PPO Care Teams Credit And Loan Collections Supervisor Relationship Specialty Start Date End Date Ashley Carrera APRN 7 [facility] [place] [id number] PCP - General Family Medicine 11/14/18
[2024-09-20 12:02] LABS: Basophils # 0.1 K/mm3 (0-0.2); Basophils % 0.9 % (0.1-2.0); Eosinophils # 0.2 K/mm3 (0.0-0.4); Eosinophils % 1.9 % (0.1-12.0); Hematocrit 40.7 % (37.0-47.0); Hemoglobin 14.2 g/dL (12.2-16.2); Lymphocytes # 2.5 K/mm3 (0.7-4.5); Lymphocytes % 32.9 % (10-50); Mean Corpuscular Hemoglobin 30.8 pg (27.0-31.2); Mean Corpuscular Volume 88.1 fl (81-99); Mean Platelet Volume 8.3 fl (7.4-10.4); Monocytes # 0.4 K/mm3 (0.1-1.0); Monocytes % 5.6 % (1.7-9.3); Neutrophils # 4.5 K/mm3 (1.8-7.8); Neutrophils % 58.7 % (37.0-80.0); Platelet Count 263 K/mm3 (142-424); Red Blood Count 4.62 M/mm3 (4.20-5.40); Red Cell Distribution Width 12.9 % (11.5-17.5); White Blood Count 7.7 K/mm3 (4.8-10.8)
[2024-09-20 12:32] LABS: Albumin Level 4.3 g/dl (3.5-5.0); Chloride 106 mmol/L (98-107)
[2024-09-20 12:33] LABS: Potassium 4.7 mmoL/L (3.5-5.1); Sodium 139 mmol/L (136-145)
[2024-09-20 12:35] LABS: Anion Gap 9.7 mEq/L (5-15); Bilirubin,Unconjugated 0.6 mg/dL (0.0-1.1); Blood Urea Nitrogen 11 mg/dl (7-17); Carbon Dioxide 28 mmol/L (22.0-30.0); Estimated Glomerular Filt Rate 86 ml/min (>60); GFR (African American) 104 ML/MIN (>60)
[2024-09-20 12:36] LABS: Alanine Aminotransferase 71 U/L (12-78); Alkaline Phosphatase 105 U/L (38-126); Aspartate Amino Transferase 44 U/L (14-36); Bilirubin,Direct 0.1 mg/dl (0.0-0.4); Bilirubin,Indirect 0.6 mg/dL (0.0-0.9); Bilirubin,Total 0.7 mg/dl (0.2-1.3); Calcium 9.8 mg/dl (8.4-10.2); Chol/HDL Ratio 1.9 (1-3.5); Cholesterol 145 mg/dl (140-200); Glucose 81 mg/dl (74-100); HDL Cholesterol 78 mg/dl (40-60); Total Protein,Serum 6.4 g/dl (6.3-8.2); Triglycerides 50 mg/dl (30-150); VLDL Cholesterol 10 mg/dL (0-40)
[2024-09-20 12:47] LABS: Direct LDL Cholesterol 50.75 mg/dL (100-129)
[2024-09-20 12:52] LABS: Free T4 (Free Thyroxine) 1.02 ng/dl (0.78-2.19)
[2024-09-20 13:06] LABS: Thyroid Stimulating Hormone 1.43 uIU/mL (0.465-4.68)
== END 2024-09-20 23:59 | disposition home or self-care (01) ==
LOC: LAB 11:02
PROVIDERS: PCP Family Medicine; Visit Provider Physician Assistant
DX: E78.49 Other hyperlipidemia (principal); I25.10 Atherosclerotic heart disease of native coronary artery without angina pectoris
CPT/HCPCS: 36415; 80048; 80061; 80076; 84439; 84443; 85025

== ENCOUNTER 2024-10-30 09:09 | Outpatient (CLI) | payer BC, SELFPAY | END 2024-10-30 23:59 | disposition home or self-care (01) | LOC: LAB.DROPOF 10-31 09:09 | PROVIDERS: PCP Family Medicine; Visit Provider Family Medicine | DX: R31.9 Hematuria, unspecified (principal); N39.0 Urinary tract infection, site not specified; B96.29 Other Escherichia coli [E. coli] as the cause of diseases classified elsewhere | CPT/HCPCS: 87086; 87088; 87186 ==

== ENCOUNTER 2025-05-01 10:04 | Outpatient (CLI) | payer BC, SELFPAY ==
--- OUTSIDE RECORDS SUMMARY | 2025-05-01 10:07 | XMS_ITS | Data Portability ---
Author Organization [facility] ALEXA Garcia IUKA CLOSED Address [address] [facility] [address] [place] [address] Care Team Providers Care Division Merchandise Manager Name Role Phone MYRNA ACEVEDO Primary Care Provider Assessment No assessment recorded. Plan of Treatment Reminders Order Date Submit Date Provider Last Modified By Organization Details Last Modified Time Details Appointments FOLLOW UP [facility] 2024 08:40A Sarah ROCHA MD Not available Not available Not available Lab None recorded . Referral None recorded . Procedures None recorded . Surgeries None recorded . Imaging None recorded . Medication Orders None recorded . Patient TargetsNo targets recorded. Patient InstructionsNo instructions recorded. Reason for Referral None Reported. Problems Name Problem SNOMED Code Status Onset Date Resolution Date Notes Provider Name and Address Organization Details Recorded Time History of malignant neoplasm of skin [id number] Active Rosette Saleh [facility] 4 11:12:29 Problem Notes None recorded. Medical Equipment None Reported. Allergies No known drug allergies Medications Name Sig Start Date Stop Date Status Note LastModified by Organization Details LastModified Time atorvastatin active Not Available Not Available Not Available aspirin active Not Available Not Avail able Not Available metoprolol succinate active Not Available Not Available No t Available bupropion HCl active Not Available Not Available Not Available Multi Vitamin active Not Available Not Available Not Available Vitals None Recorded Social History Question Answer Notes LastModified by Organizat ion Details LastModified Time Tobacco Smoking Status Never Smoker Christal Malloy [facility] 10/21/2023 09:55:26 Sunscreen Use? Yes [email or web address] Informatio n not available 10/21/2023 Tanning Bed Use No Informati on not available 04/20/2024 What Was The Date Of Your Most Recent Tobacco Screening? 04/20/2024 Information not available 04/20/2024 Sex: Unknown Functional Status Question Answer Note LastModified by Organization D etails LastModified Time What is your level of alcohol consumption? None Information not available 04/20/2024 Mental Status None recorded. Family History Relationship Description Onset Age of this Age Resolved Age Notes LastModified by Organization Details LastModified Time Father No current problems or disability [email or web address] Not available 10/21 09:55:15 Mother No current problems or disability [email or web address] Not available 10/21 09:55:15 Medical History Condition Response Squamous Cell Carcinoma Y Basal Cell Carcinoma Gynecological HistoryNo gynecological history recorded. Obstetrics History GPAL:G 0 P 0 0 0 0 Past Encounters Encounter ID Performer Location Encounter Start Date Encounter Closed Date Diagnosis/Indication Diagnosis SNOMED-CT Code Diagnosis ICD10 Code Diagnosis Note [id number] RONEL ROCHA MD [address] [address] 10/21/2023 09:36:04 10/21/2023 10:54:40 Melanocytic nevus of skin 734538393 D22.5 Reassuranc e given. Solar lentiginosis 42486 2006 L81.4 Reassuranc e given. Zinc and titanium SPF30+ sunscreen recommende d Seborrheic keratosis 394 158193 L82.1 Reassuranc e given Hemangioma of skin 84750 006 D18.01 Reassuranc e given History of malignant neoplasm of skin 995923032 Z85.828 No evidence of recurrence today. [id number] RONEL ROCHA MD [address] [address] 04/20/2024 10:08:12 04/20/2024 11:55:28 Melanocytic nevus of skin 442149596 D22.5 Reassuranc e given. Solar lentiginosis 18416 2006 L81.4 Reassuranc e given. Zinc and titanium SPF30+ sunscreen recommende d Seborrheic keratosis 394 086229 L82.1 Reassuranc e given Hemangioma of skin 15345 006 D18.01 Reassuranc e given History of malignant neoplasm of skin 771617947 Z85.828 No evidence of recurrence today.01/31 022 - R posterior shoulder, [id number]- Mid back, [facility] Concerns Section Related Observation LastModified by Organization Detai ls LastModified Time None Recorded Concern Status LastModified by Organization Details LastModified Time None Recorded Advance Directives Directive None Recorded Payers Insurance Date Sequence Insurance Name Policy Number Policy Bejarano Covered Member ID Bejarano Member ID Guarantor Name 04/24/2024 1 [place] [id number] Katarzyna Carlson [id number] Katarzyna Carlson Notes Date Note Type Note Provider Name and Address Organization Details Recorded Time 10/21/2023 text/html Patient requests a full body skin exam. Location: Full bodyDuration: 6moHistory: Hx of NMSCAreas of concern: None RONEL ROCHA MD [address] [place] [address], [phone], [facility] 10/21/2023 16:44:58 04/20/2024 text/html I have different spots on my skin that I'd like to be checked Extent of skin exam requested:fullHx of NMSCSpots of concern: none RONEL ROCHA MD [address] [place] [address], [phone], [facility] 04/20/2024 19:12:23 OBGyn Episode No OBEpisode recorded.
--- OUTSIDE RECORDS SUMMARY | 2025-05-01 10:07 | XMS_ITS | Data Portability ---
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 denny: Multip le prior studie s. TECHNI QUE: Bilate ral digita l mammog justo and CAD screen ing were perfor med by Johnny Phillips RTM. 3-D Tomosy nthesi s imagin g was also perfor med. FINDIN GS: These images demons trate a type III breast parenc hymal patter n indica ting the breast s are hetero geneou sly dense which may lower the sensit ivity of mammog justo. No worris ome lesion s are identi fied in either breast . IMPRES ELOISE: Negati ve. Recomm end annual screen ing, regula r self breast examin ation and regula r clinic al breast exam. (CAT1) - CATEGO RY 1, NEGATI VE (1 YR) -1 YEAR -In the patien t with a palpab le abnorm ality, unexpl ained by breast imagin g, the palpab le abnorm ality should be manage d on a clinic al basis by the attend ing clinic abdoul. -Karina guevara imagin g as a false negati ve rate of approx imatel y 15%. -Patie nt was notifi ed by mail of the result s of this examin ation. Patien t may be called if furthe r workup is indica scarlett. -The patien t's inform ation was entere d into a remind er system with a target due date for the next mammog alphonse. -This mammog alphonse was review ed by a radiol ogist and CAD. This report is genera scarlett using voice recogn ition comput er softwa re. Inadve rtent errors may have occurr ed while dictat ing report . Common sense approa ch is apprec iated and do not hesita te to call for clarif icatio n when necess vincent. PAGE 1 Signed Report (SULMA NUED) [facility] Name: KATARZYNA CARLSON [employer] Phys: Je marquez LEAD SCIENTIST, Ulysses Frazier [place] [address] : 1964 Age: 58 Sex: F Acct: [id number] Loc: G.MAMM PHONE #: Exam Date: 2023 Status : DEP CLI FAX #: Rad# [id number] Unit# [id number] Admit Date: 2023 EXAMS: CPT CODE: [id number] SCN DIG BREAST TOMOSY N ROSS 93569 Electr onical ly Signed by lUisses Herring on 2023 at 1845 Report ed and signed by: RYLIE Herring M.D. CC: Layla Padilla MD; Ulysses marquez Dictat ed Date/T adrien: 2023 (1845) Techno logist : JOHNNY PHILLIPS (RT)(R ) Transc ribed Date/T adrien: 2023 (1844) Transc riptio nist: DR.HAR EDWINA Jarrett oneliecer Signat ure Date/T adrien: 2023 (1844) Printe d Date/T adrien: 2023 (09) BATCH NO: N/A PAGE 2 Signed Report CC'ed Logic: Orderi ng Provid er: JE Laird Attend ing Provid er: JE Laird Referr ing Provid er: JE Laird Consul ting Provid er: KELBY Herring [address] , [place], [address], 12/29/2023 10:32:03 12/27/19 25 12/27/2024 MAMMO , scree esme, bilat [facility] Name: KATAR[facility]NA CARLS[facility] Phys: Je marquez LEAD SCIENTIST, [place] [address] : 1964 Age: 59 Sex: F Acct: [id number] Loc: G.MAMM PHONE #: Exam Date: 2024 Status : DEP CLI FAX #: Rad# [id number] Unit# [id number] Admit Date: 2024 EXAMS: CPT CODE: [id number] SCN DIG BREAST TOMOSY N ROSS 50219 EXAMIN ATION: SCN DIG BREAST TOMOSY N ROSS HISTOR Y: SCREEN ING COMPAR DENNY: 024, 2021, 021 and 2019 TECHNI QUE: Bilate ral screen ing mammog alphonse. CC and MLO views of both breast s were obtain ed with combin ation 2-D mammog alphonse (DM)/d igital breast tomosy nthesi s (DBT) and interp reted with CAD. FINDIN GS: Breast Densit y: B - There are scatte red areas of fibrog landul ar densit y. No skin thicke esme or nipple retrac tion. No suspic ious calcif icatio ns, masses , or areas of anitha ectura l distor tion. The appear ance is stable since the previo us mammog alphonse. IMPRES ELOISE: 1. No mammog raphic eviden ce of malign vidal. 2. Recomm end annual screen ing mammog justo unless there is interv al clinic al concer n. BI-RAD S CATEGO RY: CATEGO RY 2, BENIGN FINDIN GS RECOMM ENDATI ON: ANNUAL SCREEN ING IN 12 MONTHS Electr onical ly signed by: Zana Russell MD 2024 01:07 PM EST RP Workst ation: SEALWR [id number] [facility] Electr onical ly Signed by ZANA RUSSELL on 2024 at 1256 Report ed and signed by: DAVINA GROVER PAGE 1 Signed Report (SULMA COOLEY) [facility] Name: KATARZYNA CARLSON [address] [place], [place] [address]a [employer] Phys: Je marquez LEAD SCIENTIST, Ulysses Frazier [place] [address] : 1964 Age: 59 Sex: F Acct: [id number] Loc: G.MAMM PHONE #: [phone] Exam Date: 2024 Status : DEP CLI FAX #: [phone] Rad# [id number] Unit# [id number] Admit Date: 2024 EXAMS: CPT CODE: [id number] SCN DIG BREAST TOMOSY N ROSS 08866 CC: Layla Padilla MD; Ulysses marquez Dictat ed Date/T adrien: 2024 (1256) Techno logist : JOHNNY PHILLIPS (RT)(R ) Transc ribed Date/T adrien: 2024 (1256) Transc riptio nist: DR.EDM PATEL Electr onic Signat ure Date/T adrien: 2024 (1256) Printe d Date/T adrien: 2024 (1311) BATCH NO: N/A PAGE 2 Signed Report CC'ed Logic: Orderi ng Provid er: JE Laird Attend ing Provid er: JE Laird Referr ing Provid er: JE Laird Consul ting Provid er: KELBY peres [address], [place], [address], 01/17/2025 14:33:48 Result Notes Documentation Provider Name and Address Organization Details Recorded Time Mammo, Screening, Bilateral : [facility] Name: KATARZYNA CARLSON [address] [place] [address] Phys: Deandre BARRAZA, [place] [address] : 1965 Age: 59 Sex: F Acct: [id number] Loc: G.MAMM PHONE #: Exam Date: 12/26/2024 Status: LINDA CLI FAX #: Rad# [id number] Unit# [id number] Admit Date: 12/26/2024 EXAMS: CPT CODE: [id number] SCN DIG BREAST TOMOSYN ROSS 38273 EXAMINATION: SCN DIG BREAST TOMOSYN ROSS HISTORY: SCREENING COMPARISON: 12/23/2023, 10/20/2022, 10/03/2021 and 09/25/2020 TECHNIQUE: Bilateral screening mammogram. CC and MLO views of both breasts were obtained with combination 2-D mammogram (DM)/digital breast tomosynthesis (DBT) and interpreted with CAD. FINDINGS: Breast Density: B - There are scattered areas of fibroglandular density. No skin thickening or nipple retraction. No suspicious calcifications, masses, or areas of architectural distortion. The appearance is stable since the previous mammogram. IMPRESSION: 1. No mammographic evidence of malignancy. 2. Recommend annual screening mammography unless there is interval clinical concern. BI-RADS CATEGORY: CATEGORY 2, BENIGN FINDINGS RECOMMENDATION: ANNUAL SCREENING IN 12 MONTHS Electronically signed by: Tony Gan MD 12/27/2024 01:07 PM [facility] FOLLOW-UP CODE at 1256 Reported and signed by: TONY GAN PAGE 1 Signed Report (CONTINUED) [facility] Name: KATARZYNA CARLSON [facility] [employer] [facility] Phys: Deandre LEAD SCIENTIST, [place] [address] : 1965 Age: 59 Sex: F Acct: [id number] Loc: TeenaMAMM PHONE #: Exam Date: 12/26/2024 Status: DEP CLI FAX #: Rad# [id number] Unit# [id number] Admit Date: 12/26/2024 EXAMS: CPT CODE: [id number] SCN DIG BREAST TOMOSYN ROSS 51256 CC: Aryan Padilla MD; Ashley Carrera Dictated Date/Time: 12/27/2024 (1256) Technologist: CORDELIA PHILLIPS (RT)(R) Transcribed Date/Time: 12/27/2024 (3856) Residential Appraiser: Electronic Signature Date/Time: 12/27/2024 (1256) Printed Date/Time: 12/27/2024 (2399) BATCH NO: N/A PAGE 2 Signed Report CC'ed Logic: Ordering Provider: DEANDRE RICHTER Attending Provider: DEANDRE RICHTER Referring Provider: DEANDRE RICHTER Consulting Provider: KELBY Guillermo [facility], [place] - [facility] 01/17/2025 14:33:48 Problems Name Problem SNOMED Code Status Onset Date Resolution Date Notes Provider Name and Address Organization Details Recorded Time History of dysplasia of cervix 502138462 Active 2016 Ashley Carrera [employer] [address], [place], [address], [place] - [facility] 7 20:30:12 Liver enzymes level above reference range 842115072 Active 2016 Ashley Carrera [employer] [address], [place], [address], [place] [facility] 7 11:33:27 Adenomatous polyp of colon 461410725 Active 2021 Ashley Carrera [employer] [address], [place], [address], [place] [facility] 2 21:27:09 Osteopenia 745760215 Active 2022 Ashley Carrera [employer] [address], [place], [address], [place] [facility] 3 19:09:12 Cervical intraepithe lial neoplasia grade 1 363595254 Active 2022 Ashley Carrera, [employer] [address], [place], [address], [place] [facility] 3 14:04:55 Procedure on heart Active 2021 Stent placed in vessel with 80% blockage Brandie Polanco, [address], [place], [address], [place] [facility] 4 10:25:41 Atypical squamous cells on cervical Papanicolao u smear cannot exclude high grade squamous intraepithe lial lesion 018371177 Active 2023 Amber Alston APRN [address], [place], [address], [place] [facility] 4 09:46:56 Problem Notes None recorded. Procedures Surgical History Date Name Laterality Status Provider Name and Address Organization Details Recorded Time 03/23/20 25 Date of Last Colonoscopy completed Ashley Carrera, ROSA [address], [place], [address], [place] [facility] 03/30/2025 10:44:23 12/26/19 25 Date of Last Pap Smear completed Mima De [place] - [facility] 01/01/2025 10:26:08 12/26/19 25 Date of Last Mammogram completed Ashley CarreraROSA [address], [place], [address], [place] [facility] 12/27/2024 14:04:51 01/06/20 24 Colposcopy completed Amber Alston APRN [address], [place], [address], [place] [facility] 01/06/2024 09:48:09 01/06/20 24 Colposcopy completed Amber Alston APRN [address], [place], [address], [place] [facility] 01/06/2024 09:50:18 01/06/20 24 colposcopy completed Amber Alston APRN [address], [place], [address], [place] [facility] 01/12/2024 09:57:00 11/25/19 23 IUD Removal completed Ashley Yorkmond, [employer] [address], [place], [address], [place] [facility] 11/25/2022 09:58:03 11/25/19 23 IUD Removal completed Paola Lema [place] - [facility] 2022 09:30:49 11/16/19 23 Colposcopy completed Ashley Yorkmond, [employer] [address], [place], [address], [place] [facility] 11/16/2022 11:36:19 11/16/19 23 Colposcopy completed Ashley Deandre, [employer] [address], [place], [address], [place] [facility] 11/25/2022 09:54:57 11/06/19 23 Most Recent Bone Density completed Ashley Deandre [employer] [address], [place], [address], [place] [facility] 11/08/2022 19:08:45 08/01/20 22 Cardiac Cath completed Ashley Yorkmond, [employer] [address], [place], [address], [place] [facility] 10/20/2022 13:30:24 09/25/20 20 Systolic B/P less than 130 mm Hg completed Ashleyglenda Carrera, [employer] [address], [place], [address], [place] [facility] 09/25/2020 13:03:11 09/25/20 20 Diastolic B/P less than 80 mm Hg completed Ashleyglenda Carrera, [employer] [address], [place], [address], [place] [facility] 09/25/2020 13:03:15 11/23/19 14 IUD Insertion completed Paola Lema [place] - [facility] 08/01 11:01:46 11/01/19 14 Dilation and Curettage, sharp completed Amber Alston [employer] [address], [place], [address], [place] [facility] 01/06/2024 09:23:36 09/15/20 13 Hysteroscopy completed Paola Lema [place] - [facility] 08/12 11:00:41 09/15/20 13 Dilation and Curettage, suction completed Paola MAXWELL - [facility] 08/12/2017 11:01:12 dental surgery completed Amber Medranoronald nixon, [employer] [address], [place], [address], [place] - [facility] 01/06/2024 09:22:44 Dilation and Curettage, sharp completed Amber Alston, [employer] [address], [place], [address], [place] - [facility] 01/06/2024 09:22:44 Colposcopy completed Paola MAXWELL - [facility] 08/12/2017 11:00:23 LEEP completed Paola MAXWELL - [facility] 1 11:01:59 Tubal Ligation completed Paola MAXWELL - [facility] 08/12/2017 11:02:18 Imaging Results None recorded. Procedure Notes None recorded. Medical Equipment None Reported. Allergies No known drug allergies Medications Name Sig Start Date Stop Date Status Note LastModified by Organization Details LastModified Time medroxypr ogesteron e 10 mg tablet take 1 tablet (10 mg) by oral route once daily for 30 days 11/29 completed medroxyp rogester one 10 mg oral tablet;P rescribe Status: Prescrib ed on: 09/20/20 13 3:00PM;D iscontin ued Status: Disconti nued on: 11/29/19 15 10:03AM; User: sara Delgado Completi on: 01/19/20 14;Indic ation: Endometr ial Hyperpla radha Preventi on - (10.6213 );Phar macyVeri fied: 09/20/20 13 3:00PM Not Available Not Available Not Available Mirena 21 mcg/24 hr (up to 8 years) 52 mg intrauter ine device Take by intraute rine route. 12/23 completed Not Available Not Available Not Available atorvasta tin 40 mg tablet 1 po qd active Not Available Not Available Not Available promethaz ine-DM 6.25 mg-15 mg/5 mL oral syrup TAKE 1 TEASPOON FUL BY MOUTH EVERY SIX HOURS NEEDED FOR COUGH 10/03 completed Not Available Not Available Not Available azithromy ronny 250 mg tablet TAKE 2 TABLETS BY MOUTH ON DAY 1, AND THEN TAKE 1 TABLET BY MOUTH ONCE A DAY ON DAY 2 THROUGH DAY 5 12/23 completed Not Available Not Available Not Available prednison e 20 mg tablet TAKE 1 TABLET BY MOUTH TWICE DAILY FOR 4 DAYS 10/03 completed Not Available Not Available Not Available sulfameth oxazole 800 mg-trimet hoprim 160 mg tablet 12/26 completed Not Available Not Available Not Available aspirin 81 mg tablet,de layed release 1 po qd active Not Available Not Available Not Available pantopraz ole 20 mg tablet,de layed release 1 po qd 10/20 completed Not Available Not Available Not Available bisoprolo l fumarate 5 mg tablet 10/20 completed Not Available Not Available Not Available Flagyl 500 mg tablet take 1 tablet (500 mg) by oral route every 12 hours for 7 days 08/14 completed Flagyl 500 mg oral tablet;R ecorded Status: Recorded on: 10/13/20 11 2:29PM;D iscontin ued Status: Disconti nued on: 08/14/20 13 1:53PM;U ser: ktj; Est. Completi on: 10/20/20 11;Print ed: 10/13/20 11 Not Available Not Available Not Available benzonata te 100 mg capsule 10/20 completed Not Available Not Available Not Available metoprolo l succinate ER 25 mg tablet,ex tended release 24 hr 1 po qd active Not Available Not Available Not Available methylpre dnisolone 4 mg tablets in a dose pack TAKE BY MOUTH DIRECTED ON INSIDE OF PACKAGE 10/20 completed Not Available Not Available Not Available Vitamin D2 1,250 mcg (50,000 unit) capsule Take by oral route. active Not Available Not Available No t Available ramipril 5 mg capsule 10/20 completed Not Available Not Available Not Available amoxicill in 875 mg-potass ium clavulana te 125 mg tablet TAKE 1 TABLET BY MOUTH EVERY 12 HOURS FOR 10 DAYS 10/03 completed Not Available Not Available Not Available bupropion HCl XL 300 mg 24 hr tablet, extended release Take 1 tablet daily 12/26 completed Not Available Not Available Not Available bupropion HCl XL 150 mg 24 hr tablet, extended release 1 po qd 12/26 completed Not Available Not Available Not Available GaviLyte- G 236 gram-22.7 4 gram-6.74 gram-5.86 gram oral solution 08/16 completed Not Available Not Available Not Available Suprep Bowel Prep Kit 17.5 gram-3.13 gram-1.6 gram oral solution 10/20 completed Not Available Not Available Not Available Brilinta 90 mg tablet TAKE ONE TABLET BY MOUTH TWICE DAILY 12/23 completed Not Available Not Available Not Available Afluria 9709-3905 (PF) 45 mcg(15 mcg x 3)/0.5 mL intramusc ular syringe 09/14 completed Not Available Not Available Not Available [facility] active Not Available Not Available Not Available Vitals Date Recorded Body height Body mass index (BMI) Body weight Systolic And Diastolic Provider Name and Address Organization Details Last Updated DateTime 11/25/2022 162.56 cm 29.5 kg/m2 79492.89 g 116/74 mm[Hg] Paola Lema [facility] 11/25/2022 09:30:05 Date Recorded Body height Body mass index (BMI) Body weight Systolic And Diastolic Provider Name and Address Organization Details Last Updated DateTime 12/11/2022 162.56 cm 29.5 kg/m2 72533.89 g 112/74 mm[Hg] Mima De [facility] 12/11/2022 10:27:33 Date Recorded Body height Body mass index (BMI) Body weight Systolic And Diastolic Provider Name and Address Organization Details Last Updated DateTime 12/23/2023 162.56 cm 31.1 kg/m2 71638.22 g 126/84 mm[Hg] Mima De [facility] 12/23/2023 09:53:51 Date Recorded Body height Body mass index (BMI) Body weight Systolic And Diastolic Provider Name and Address Organization Details Last Updated DateTime 12/26/2024 162.56 cm 28.8 kg/m2 70125.52 g 114/72 mm[Hg] Mima De [facility] 12/26/2024 10:22:50 Date Recorded Body height Body mass index (BMI) Body weight Systolic And Diastolic Provider Name and Address Organization Details Last Updated DateTime 01/06/2024 162.56 cm 31.1 kg/m2 88297.22 g 122/82 mm[Hg] Leann Vines [place] - [facility] 01/06/2024 09:10:45 Social History Question Answer Notes LastModified by Organizat ion Details LastModified Time Tobacco Smoking Status Former Smoker Amber Alston, [employer] [address], [place], [address], [place] - [facility] 01/06/2024 09:23:11 Do You Have An Advance Directive? No [email or web address] Information not available 08/16/2017 Are You Blind Or Do You Have Difficulty Seeing? No [email or web address] Information not available 08/16/2017 Is Blood Transfusion Acceptable In An Emergency? Yes Information not available 08/16/2017 What Is Your Level Of Caffeine Consumption? Moderate [email or web address] Information not available 01/06/2024 How Much Tobacco Do You Chew? None [email or web address] Information not available 08/16/2017 In The 14 Days Before Symptom Onset, Have You Had Close Contact With A Laboratory-confir med COVID-19 While That Case Was Ill? No [email or web address] Information not available 10/03/2021 In The 14 Days Before Symptom Onset, Have You Had Close Contact With A Person Who Is Under Investigation For COVID-19 While That Person Was Ill? No [email or web address] Information not available 10/03/2021 Have You Been To An Area Known To Be High Risk For COVID-19? No [email or web address] Information not available 10/03/2021 Are You Deaf Or Do You Have Serious Difficulty Hearing? No [email or web address] Information not available 08/16/2017 What Type Of Diet Are You Following? SPECIFIC [email or web address] Information not available 01/06/2024 Which Illicit Or Recreational Drugs Have You Used? None [email or web address] Information not available 08/16/2017 Have You Processed Blood Or Body Fluids From An Ebola Virus Disease Patient Without Appropriate PPE? No [email or web address] Information not available 10/03/2021 Do You Reside In Or Have You Traveled To An Area Where Ebola Virus Transmission Is Active? No [email or web address] Information not available 10/03/2021 What Is The Highest Grade Or Level Of School You Have Completed Or The Highest Degree You Have Received? [id number] [email or web address] Information not available 09/14/2018 How Many Days Of Moderate To Strenuous Exercise, Like A Brisk Walk, Did You Do In The Last 7 Days? 3 [email or web address] Information not available 09/14/2018 On Those Days That You Engage In Moderate To Strenuous Exercise, How Many Minutes, On Average, Do You Exercise? 30 [email or web address] Information not available 09/14/2018 Have There Been Any Changes To Your Family Or Social Situation? No [email or web address] Information no t available 10/03/2021 How Hard Is It For You To Pay For The Very Basics Like Food, Housing, Medical Care, And Heating? Not Very Hard [email or web address] Information not available 10/03/2021 What Is The Fluoride Status Of Your Home? Fluoridated [email or web address] Information not available 10/03/2021 When Did You Quit Smoking? 1-5yearssincelast cigarette [email or web address] Information not available 01/06/2024 Have You Recently Or Are You Planning To Travel To An Area With Zika Virus? No Information not available 10/03/2021 Live Alone Or With Others? With Others [email or web address] Information not available 08/16/2017 Do You Have A Medical Power Of Scientific Systems Analyst? No [email or web address] Information not available 10/03/2021 What Was The Date Of Your Most Recent Tobacco Screening? 12/23/2023 evirgin Information not available 12/23/2023 How Many Children Do You Have? 2 [email or web address] Information not available 08/16/2017 What Is Your Current Pack Years? 30ormorepackyears [email or web address] Information no t available 10/03/2021 Performs Monthly Self-breast Exam? Yes [email or web address] Information no t available 08/16/2017 Do You Use Protection During Sex? No [email or web address] Information not available 01/06/2024 Do You Use Protection Against STDs? No Information not available 10/20/2022 What Is Your Relationship Status? [email or web address] Information not available 08/16/2017 Do You Use Your Seat Belt Or Car Seat Routinely? Yes Information not available 01/06/2024 Seat Belts Used Routinely Yes [email or web address] Information not available 08/16/2017 Are You Sexually Active? Yes [email or web address] Information not available 08/16/2017 Do You Have Smoke And Carbon Monoxide Detectors In Your Home? Yes [email or web address] Information not available 01/06/2024 At What Age Did You Start Smoking Tobacco? 54 [email or web address] Information not available 10/03/2021 Are You Passively Exposed To Smoke? No Information no t available 01/06/2024 How Much Tobacco Do You Smoke? 2 PPW [email or web address] Information not available 01/06/2024 General Stress Level Low [email or web address] Information not available 08/16/2017 Do You Use Sunscreen Routinely? Yes Information not available 08/16/2017 Has Tobacco Cessation Counseling Been Provided? No [email or web address] Information not available 08/16/2017 How Many Years Have You Smoked Tobacco? 1 [email or web address] Information not available 10/03/2021 Do You Have Difficulty Walking Or Climbing Stairs? No [email or web address] Information not available 08/16/2017 What Contraceptive Method Was Reported At Start Of This Visit? None Information not available 10/20/2022 What Contraceptive Method Was Reported At End Of This Visit? None [email or web address] Information not available 10/20/2022 Do You Want To Talk About Contraception Or Prevention During Your Visit Today? No - I Do Not Want To Talk About Contraception Today Because I Am Here For Something Else [email or web address] Information not available 10/20/2022 Do You Have Any Future Plans To Get ? No, I Don't Want To Become [email or web address] Information not available 10/20/2022 What Is Your Reason For Having No Contraceptive Method At Start Of This Visit? Other [email or web address] Information not available 10/20/2022 What Is Your Reason For Having No Contraceptive Method At End Of This Visit? Other [email or web address] Information not available 10/20/2022 Sex: Female Functional Status Question Answer Note LastModified by Organizat ion Details LastModified Time Do you or have you ever used smokeless tobacco? Never used smokeless tobacco [email or web address] Information not available 09/20/2019 Are you currently employed? Yes [email or web address] Information not available 08/16/2017 Do you have transportation difficulties? No [email or web address] Information not available 10/03/2021 Are you able to care for yourself? Yes [email or web address] Information n ot available 10/03/2021 Do you have difficulty dressing or bathing? No [email or web address] Information not available 08/16/2017 Do you or have you ever used e-cigarettes or vape? Never used electronic cigarettes [email or web address] Information not available 09/20/2019 What is your exercise level? Moderate [email or web address] Information not available 01/06/2024 Do you use any illicit or recreational drugs? No Information not available 10/03/2021 Do you or have you ever used any other forms of tobacco or nicotine? No [email or web address] Information not available 10/03/2021 What is your level of alcohol consumption? Occasional [email or web address] Information not available 08/16/2017 What is your status? Not [email or web address] Information no t available 10/20/2022 Are you able to walk? YESWOREST [email or web address] Information not available 08/16/2017 Do you have difficulty doing errands alone? 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 [id number] [email or web address] Information not available 09/14/2018 Do you have difficulty concentrating, remembering or making decisions? No [email or web address] Information no t available 08/16/2017 Family History Relationship Description Onset Age of this Age Resolved Age Notes LastModified by Organization Details LastModified Time Paternal Grandmother Malignant tumor of breast [email or web address] Not available 2016 10:59:18 Paternal Grandfather Malignant tumor of colon [email or web address] Not available 2016 10:59:31 Father Heart disease [email or web address] Not available 2016 10:59:59 Father Malignant neoplasm of prostate [email or web address] Not available 2024 10:18:31 Maternal Grandfather Heart disease Not available 2016 10:59:59 Maternal Grandmother Heart disease [email or web address] Not available 2016 10:59:59 Brother Neoplasm of kidney [email or web address]-251 Not available 2024 10:18:31 Medical History Condition Response Pancreatitis N Other N Atrial Fibrillation N congenital heart disease N Blood Diseases N Hyperthyroidism N Rheumatoid arthritis N Blood Transfusion N Erectile Dysfunction N amputation N Skin Lesions N Depression N Pneumonia N Incontinence N Murmur N Edema N Alzheimer's Disease N Migraine Headaches N Tobacco Abuse N Anxiety Disorder N Hemorrhoids N Obesity N Vision or Eye Problems N Arthritis N Restless Leg Syndrome N Polyps N Infertility N Carpal Tunnel N Acid Reflux (GERD) N Cancer N Varicosities N Stroke N Tendonitis N Crohn's Disease N Hypercholesterolemia N Skin Cancer N Headaches N Fibromyalgia N Irritable Bowel Syndrome N Anal Fissure N Kidney Disease N Heart Problems Y Hospitalizations N Gallstones N Kidney or Bladder Problems N Goiter N Acne N Eating Disorder N Santiago's Esophagus N Hypertriglyceridemia N Constipation N Embolism N Vitamin B12 Deficiency N Deviated Septum N AIDS/HIV N Myocardial Infarction N Asthma N Mitral Valve Disorders N Vertigo N Hepatitis N Thyroid Cancer N Neuropathy N History of DVT N Herniated Disc N Chicken Pox N Von Willebrands Disease N Thrombophilias N Breast Cancer N Hernia N Plantar Fasciitis N Hypothyroidism N Lung Disease N Defects or Inherited Disease N Breast Problem N Ovarian Cyst N Anesthesia Complications N Testosterone Deficiency N Interstitial Cystitis N Congenital Anomalies N Hypoglycemia N Blood clot N Vitamin D Deficiency N Cellulitis N Endometriosis N Bladder or Kidney Problems N Fracture N Panic Disorder N Schizophrenia N Concussion N Spina Bifida N Osteoarthritis N Parkinson's Disease N Disc Protrusion N STI N Esophagitis N Angina N Thyroid Problems N GI Problems N ADD/ADHD N Anemia N Multiple Sclerosis N Abnormal PAP Y Lumbago N Mental Illness N Psychiatric Illness N Diabetes N Ovarian Cancer N Degenerative Disc Disease N Seizures/Epilepsy N Hyperlipidemia N Syncope N Insomnia N Eczema N Abuse/Domestic Violence N Attention Deficient Disorder N Dementia N Ulcerative colitis N Cerebrovascular Disease N Depression N Guillain-[place]ols[place] N Sleep Apnea N Aneurysm N Bronchitis N Heart Disease N Hypertension N Pre-Eclampsia N Suicidal Ideation N Osteoporosis N Gynecological History Statement/Question Response Abnormal Pap Y Date of Last Mammogram 12/26/2024 Flow Light Date of LMP 09/11/2019 Post Menopausal Bleeding N On BCP's at Conception? N STIs/STDs N Colposcopy 01/06/2024 HPV Vaccine N Current Control Method None Age at First Child 25 Last Annual Exam/Provider 2023 SMO Last Lipids -2021 Date of Last Colonoscopy 03/23/2025 Most Recent Bone Density 11/06/2022 Sexually Active? Y Menses Monthly N Date of Last Pap Smear 12/26/2024 Sexual Problems? N LMP Unknown Desired Control Method Sterilizati on Hormone Replacement Therapy N Obstetrics History GPAL:G 2 P 2 0 0 2 Type Value Full Term 2 Living 2 Total 2 Immunizations Vaccine Type Date Status Note Provider Name and Address Organization Details Recorded Time Influenza, split virus, quadrivalent, preservative 09/07/20 19 completed Mima Whitfield null, [place] - [facility] 12/26/2024 10:23:10 COVID-19, mRNA, LNP-S, PF, 100 mcg/0.5mL dose or 50 mcg/0.25mL dose 11/06/19 22 completed Mima Whit[place], [place] - [facility] 12/26/2024 10:23:10 COVID-19, mRNA, LNP-S, PF, 100 mcg/0.5mL dose or 50 mcg/0.25mL dose 12/20/19 21 completed Mima Whitfield [place], [place] - [facility] 12/26/2024 10:23:10 Influenza, split virus, trivalent, PF 11/04/19 18 completed Mima Whitfield null, [facility] 12/26/[facility] 10:23:10 Influenza, split virus, quadrivalent, PF 07/26/20 21 completed Mima Whit[place] - [facility] 12/26/2024 10:23:10 Influenza, split virus, quadrivalent, PF 10/10/20 20 completed Mima Whit[place] - [facility] 12/26/2024 10:23:10 Influenza, split virus, quadrivalent, preservative 12/23/19 24 cancelled patient objection Brandie Polanco, DO [address], [place], [address], [place] [facility] 12/23/2023 10:32:17 Influenza, split virus, quadrivalent, preservative 09/14/20 18 completed Not Available [facility] 11/18/2019 03:55:26 COVID-19, mRNA, LNP-S, PF, 100 mcg/0.5mL dose or 50 mcg/0.25mL dose 11/21/19 21 completed Mima Whitfield null, [place] - [facility] 12/26/2024 10:23:10 COVID-19, mRNA, LNP-S, PF, 100 mcg/0.5mL dose or 50 mcg/0.25mL dose 12/22/19 21 completed Mima Whitfield null, [place] - [facility] 12/26/2024 10:23:10 Influenza, split virus, quadrivalent, preservative 07/02/20 21 completed ALISSA Carmona [facility] 12/26/2024 10:23:10 Past Encounters Encounter ID Performer Location Encounter Start Date Encounter Closed Date Diagnosis/Indication Diagnosis SNOMED-CT Code Diagnosis ICD10 Code Diagnosis Note [id number] Ashley ROSA Carrera [place] [address] [facility] [place] [id number] 08/16/2017 15:43:18 08/16/2017 16:58:56 Routine gynecologic examination done 9174971237 9101 Z01.419 Examinatio n of blood pressure 555769894 Z01.30 BP goal < 140/90 Depression screening 171 413153 Z13.89 Diet education 17766948 Z71.3 3135-9069 calorie diet recommende d with emphasis on low saturated fat, low carbohydra te, and adequate protein intake. She declines dietary consult. Counseling 785689643 Z71 .9 Exercise counselsanket benton. Patient encouraged to exercise 30 minutes 5 days a week. Vaccine de clined by patient 5937844402 02 Z28.21 Screening for malignant neoplasm of cervix 457772184 Z12.4 Z11.51 Z11.8 Screening mammography 24 562123 Z12.31 Body mass index 30+ - obesity 978529741 Z68.30 History of dysplasia of cervix 611069809 Z87.410 History of tubal ligation 177745633 Z98.51 Surveillan ce of intrauterine device contraception done 8406454465 90467 Z30.40 [id number] [facility] [address] [place] [address] 09/14/2018 08:49:58 09/14/2018 09:48:22 Routine gynecologic examination done 0758545542 9101 Z01.419 Examinatio n of blood pressure 431171701 Z01.30 BP goal < 140/90 Depression screening 171 239897 Z13.89 Diet education 10985541 Z71.3 9302-2907 calorie diet recommende d with emphasis on low saturated fat, low carbohydra te, and adequate protein intake. She declines dietary consult. Counseling 966601901 Z71 .82 Exercise counselsanket benton. Patient encouraged to exercise 30 minutes 5 days a week. Screening for malignant neoplasm of cervix 378553886 Z12.4 Z11.51 Z11.8 Hyperlipid emia screening 113888588 Z13.220 Diabetes m ellitus screening 307006680 Z13.1 Thyroid di sorder screening 851339271 Z13.29 Anemia screening 2988665 07 Z13.0 Menopausal syndrome 1237 62819 N95.9 Administra tion of influenza vaccine 28704339 Z23 History of tubal ligation 712710443 Z98.51 Surveillan ce of intrauterine device contraception done 1951140974 86362 Z30.40 for heavy menstrual bleeding-e xpires 11-23-18-ok to leave for up to 7+ years for cycle control only Body mass index 25-29 - overweight 916237449 Z68.29 [id number] ROSA [facility] [place] [address] [facility] [place] [id number] 09/09/2017 08:33:11 09/09/2017 08:45:31 Hyperlipidemia screening 620845049 Z13.220 Diabetes m ellitus screening 518957102 Z13.1 Thyroid di sorder screening 499457212 Z13.29 Anemia screening 8899155 07 Z13.0 [id number] [facility] [address] [place] [address] 09/20/2019 08:56:54 09/20/2019 09:34:33 Routine gynecologic examination done 4509798650 9101 Z01.419 Examinatio n of blood pressure 045180367 Z01.30 BP goal < 140/90 Depression screening 171 988438 Z13.31 Diet education 83261751 Z71.3 5028-1781 calorie diet recommende d with emphasis on low saturated fat, low carbohydra te, and adequate protein intake. She declines dietary consult. Counseling 446890709 Z71 .82 Exercise counselsanket nina Patient encouraged to exercise 30 minutes 5 days a week. Vaccine de clined by patient 5613753738 02 Z28.21 Screening for malignant neoplasm of cervix 307120707 Z12.4 Z11.51 Z11.8 Surveillan ce of intrauterine device contraception done 3745248716 08066 Z30.40 for heavy menstrual bleeding-e xpires 11-23-18-ok to leave for up to 7+ years for cycle control only Body mass index 25-29 - overweight 538272528 Z68.27 Liver enzy mes level above reference range 954660293 R74.8 near normal levels-GI believes related to fatty liver History of dysplasia of cervix 446851210 Z87.410 History of tubal ligation 181891748 Z98.51 [id number] ROSA Duke [facility] [address] [place] [address] 09/25/2020 09:36:47 09/25/2020 10:16:38 Routine gynecologic examination done 2874764863 9101 Z01.419 Examinatio n of blood pressure 669391947 Z01.30 BP goal < 140/90 Depression screening 171 354047 Z13.31 Diet education 85668757 Z71.3 2456-0455 calorie diet recommende d with emphasis on low saturated fat, low carbohydra te, and adequate protein intake. She declines dietary consult. Counseling 630835386 Z71 .82 Exercise counselsanket nina Patient encouraged to exercise 30 minutes 5 days a week. Vaccine de clined by patient 3993060552 02 Z28.21 Screening for malignant neoplasm of breast 189392762 Z12.31 Done earlier today Screening for malignant neoplasm of colon 537726865 Z12.11 Current from 2019 History of dysplasia of cervix 487770451 Z87.410 Surveillan ce of intrauterine device contraception done 8818512618 55521 Z30.40 for menorrhagi a Screening for malignant neoplasm of cervix 160766043 Z12.4 Z11.51 Z11.8 Uterine leiomyoma 027894 05 D25.9 Body mass index 25-29 - overweight 264152938 Z68.27 Liver enzy mes level above reference range 997116945 R74.8 Near normal levels now. Followed by GI. History of tubal ligation 143761032 Z98.51 [id number] ROSA [facility] [place] [address] [facility] [place] [id number] 10/03/2019 13:19:52 10/03/2019 14:22:14 Surveillance of intrauterine device contraception done 3220431747 80849 Z30.40 for heavy menstrual bleeding-e xpires 11-23-18-ok to leave for up to 7+ years for cycle control only Uterine leiomyoma 531609 05 D25.9 [id number] ROSA [facility] [place] [address] [place] [address] [place] [address] 10/03/2021 09:25:34 10/03/2021 10:22:31 Routine gynecologic examination done 4539161284 9101 Z01.419 Examinatio n of blood pressure 188839907 Z01.30 BP goal < 140/90 Depression screening 171 489405 Z13.31 Diet education 54455852 Z71.3 9754-9529 calorie diet recommende d with emphasis on low saturated fat, low carbohydra te, and adequate protein intake. She declines dietary consult. Counseling 872056062 Z71 .82 Exercise counsellin chetan. Patient encouraged to exercise 30 minutes 5 days a week. Screening for malignant neoplasm of breast 718155128 Z12.31 Scheduled for today Screening for malignant neoplasm of colon 617178584 Z12.11 Current from 2019 History of dysplasia of cervix 259808206 Z87.410 Body mass index 25-29 - overweight 926093472 Z68.29 Surveillan ce of intrauterine device contraception done 6920917399 25777 Z30.40 for menorrhagi a Menopausal syndrome 1237 81122 N95.9 Screening for malignant neoplasm of cervix 257473945 Z12.4 Z11.51 Z11.8 History of tubal ligation 914036184 Z98.51 Liver enzy mes level above reference range 967814711 R74.8 Near normal levels now. Followed by GI. [id number] ROSA Duke [place] [address] [place] [address] [place] [id number] 10/20/2022 12:55:56 10/20/2022 13:56:06 Routine gynecologic examination done 7636278597 9101 Z01.419 Examinatio n of blood pressure 224954480 Z01.30 BP goal < 140/90 Depression screening 171 427390 Z13.31 PHQ-9 score of 0. Diet education 67700557 Z71.3 4900-6916 calorie diet recommende d with an emphasis on reducing sugar and refined carbohydra silverio, avoiding highly processed foods and decreasing saturated fats. She declines dietary consult. Counseling 983816373 Z71 .82 Exercise counselsanket benton. Patient encouraged to exercise 30 minutes 5 days a week. Vaccine de clined by patient 9293110197 02 Z28.21 Screening for malignant neoplasm of breast 381925786 Z12.31 Done today Screening for malignant neoplasm of colon 338231477 Z12.11 Current from 2021 Screening for osteoporosis 588423419 Z13.820 Z78.0 N95.1 History of placement of stent for coronary artery disease 637576531 Z95.5 History of adenomatous polyp of colon 796071164 Z86.010 History of dysplasia of cervix 648498459 Z87.410 Menopausal syndrome 1237 32293 N95.9 Surveillan ce of intrauterine device contraception done 5982169405 44592 Z30.40 for menorrhagi a Screening for malignant neoplasm of cervix 412307984 Z12.4 Z11.51 Z11.8 Body mass index 25-29 - overweight 871982190 Z68.29 History of tubal ligation 207821561 Z98.51 [id number] DO Caitlin [place] [address] [place] [address] [place] [id number] 12/23/2023 09:28:27 12/23/2023 10:30:41 Routine gynecologic examination done 9466978587 9101 Z01.419 Depression screening 171 645622 Z13.31 Diet education 28911327 Z71.3 Counseling 578659128 Z71 .82 Exercise counselsanket benton. Patient encouraged to exercise 30 minutes 5 days a week. Examinatio n of blood pressure 136731127 Z01.30 Vaccine de clined by patient 1539125745 02 Z28.21 Screening for malignant neoplasm of cervix 063965866 Z12.4 Screening mammography 24 477553 Z12.31 [id number] ROSA Duke [place] [address] [place] [address] [place] [id number] 11/16/2022 10:29:25 11/16/2022 11:15:31 Atypical squamous cells of undetermined significance on cervical Papanicolaou smear 444195036 R87.610 R87.065 [id number] ROSA [facility] [place] [address] 11/25/2022 09:19:31 11/25/2022 09:56:47 Removal of intrauterine device 63061525 Z30.321 [id number] Brandie Polanco DO [place] [address] [place] [address] [place] [id number] 12/11/2022 10:18:54 12/11/2022 11:18:29 Pre-surgery evaluation 538944072 Z01.818 Cervical intraepithelial neoplasia grade 1 626928647 N87.1 [id number] Amber Alston APRN [place] [address] [place] [address] [place] [id number] 01/06/2024 08:46:06 01/06/2024 09:42:29 Atypical squamous cells on cervical Papanicolaou smear cannot exclude high grade squamous intraepithelial lesion 773062828 R87.816 [id number] Brandie Polanco DO [place] [address] [place] [address] [place] [id number] 12/26/2024 10:18:29 12/26/2024 11:01:53 Routine gynecologic examination done 2021778238 9101 Z01.419 Depression screening 171 113931 Z13.31 Diet education 93128874 Z71.3 Counseling 795262650 Z71 .82 Exercise counselsanket g. Patient encouraged to exercise 30 minutes 5 days a week. Examinatio n of blood pressure 110664238 Z01.30 Vaccine de clined by patient 3632115513 02 Z28.21 Screening for malignant neoplasm of cervix 103344256 Z12.4 Screening mammography 24 177192 Z12.31 Health Concerns Section Related Observation LastModified by Organization Detai ls LastModified Time None Recorded Concern Status LastModified by Organization Details LastModified Time None Recorded Advance Directives Directive N: Payers Insurance Date Sequence Insurance Name Policy Number Policy Bejarano Covered Member ID Bejarano Member ID Guarantor Name 11/16/2022 1 [place] [id number] Katarzyna Carlson [id number] Katarzyna Carlson 12/23/2024 1 [place] [id number] Katarzyna [id number] Katarzyna B Aldo Notes Date Note Type Note Provider Name and Address Organization Details Recorded Time 11/25/2022 text/html Katarzyna is here fo r Mirena IUD removal. FSH/LH 91/48 at 57 years old. Ashley Carrera, [employer] [address], [place], [address], [place] - [facility] 11/25/2022 09:58:36 12/11/2022 text/html The patient was counseled about the procedure of cold knife cone , of the indications, and proposed benefits of the proposed surgery. The potential risks of any procedure including but not limited to, bleeding, infection, and anesthetic complications were reviewed; complications specific to gynecological procedures including damage to surrounding organs (vagina, bladder, ureters, gastrointestinal organs, nerves, or muscles), risks from surgical positioning, and deep vein thrombosis or pulmonary embolism risks were reviewed. The alternatives to this procedure which include more conservative surgical management were discussed and the patient prefers to proceed with the above surgical option. The proposed benefit of the surgical procedure is for resolution of pre-operative complaints, however no guarantee can be made regarding surgical outcome(s). Realistic expectations have been discussed. Pap: ASCUS, HPV positiveColpo: RONNY I on ECC Brandie Polanco DO [address], [place], [address], [place] - [facility] 12/11/2022 23:41:36 12/23/2023 text/html Annual - MOBRepo rted bypatient.History:Last annual exam: 2021; no gynecologic complaints; no change in interval history Current Contraception:[place] us relationship; Postmenopausal Preventive measures:Encourage self breast examination; Encourage regular exercise; Followed with yearly pap smears; Mammogram performed within the past year (12-23-2023); Up to date on colonoscopy screening (2021); Up to date on Dexa Scan (2022)Notes:Doing well. History of abnormal pap - was scheduled for LEEP in 2022 but was on blood thinner due to stent placement and canceled. She will have pap with HPV testing today. Brandie Polanco DO [address], [place], [address], [place] - [facility] 12/23/2023 10:32:33 01/06/2024 text/html Abnormal Pap SmearReported bypatient.Onset/Timing :pap smear performed on: (12/23/23) Quality:pap smear results: (ASC-H + HPV) Context:prior abnormal pap smear results: ; prior colposcopy results: RONNY I; prior LEEP; former smoker; current contraception: (Tubal) Associated Symptoms:no vaginal/vulvar pain; no vulvar lesions/growths; no vaginal discharge; no postcoital bleeding; no dyspareunia Patient in for colposcopy/biopsy. Patient denies any other symptoms. Amber Alston, [employer] [address], [place], [address], [place] - [facility] 01/06/2024 09:50:43 12/26/2024 text/html Annual - MOBRepo rted bypatient.History:Last annual exam: 2023; no gynecologic complaints; no change in interval history Current Contraception:[place] us relationship Preventive measures:Encourage self breast examination; Encourage regular exercise; Encourage no tobacco use; Followed with Q3 year pap smear and high risk HPV typing; Mammogram performed within the past year (-2024);Needs to schedule colonoscopy; All immunization are currentNotes:Colonosco py - will be scheduled with Dr. Elizabeth - who manages her GI issues. Discussed history of abnormal paps - if this pap is abnormal, will recommend a D&C/hysteroscopy, with cold knife cone. She is agreeable. Brandie Polanco, [address], [place], [address], [place] - [facility] 12/26/2024 12:18:36 OBGyn Episode No OBEpisode recorded.
--- NOTE | 2025-05-01 10:30 | CT_ITS ---
FINAL REPORT TECHNIQUE: Axial CT images of the chest were obtained without contrast. Coronal and sagittal reformatted images were obtained and reviewed. Low-dose protocol was utilized. This study was performed with techniques to keep radiation doses as low as reasonably achievable (ALARA). Individualized dose reduction techniques using automated exposure control or adjustment of mA and/or kV according to the patient's size were employed. CLINICAL HISTORY: Lung cancer screening, former smoker quit 2 1/2 yrs ago, smoked 1 pack per week for 10-15 yrs. COMPARISON: None FINDINGS: CT CHEST WITHOUT, LOW DOSE SCREENING CTDl vol(mGy): 2.90 DLP (mGy-cm): 100.55 Former smoker, quit 2-1/2 years ago 15 pack year history There is no axillary adenopathy. There is no hilar adenopathy. There is a small anterior mediastinal lymph node measuring 10 mm. The heart size is normal. There is a coronary artery stent present. There is no pericardial or pleural effusion. Lung window images demonstrate chronic scarring or fibrosis in the periphery of both lungs. There is a small noncalcified nodule measuring 3 mm in the periphery of the left upper lobe on image 31 of series 4. Limited images of the upper abdomen are unremarkable. IMPRESSION: Small noncalcified 3 mm nodule in the periphery of the left upper lobe. Lung RADS category 2. Recommend 12 month follow-up low-dose chest CT per Fleischner criteria. Reviewed, Interpreted and Dictated by Oskar Olivia MD Transcribed by Lee Ann Nichole Authenticated and [facility]
== END 2025-05-01 23:59 | disposition home or self-care (01) ==
LOC: RAD 10:05
PROVIDERS: PCP Family Medicine; Visit Provider Nurse Practitioner Family
DX: R91.1 Solitary pulmonary nodule (principal); Z12.2 Encounter for screening for malignant neoplasm of respiratory organs; Z87.891 Personal history of nicotine dependence
CPT/HCPCS: 71271